=== PATIENT | female | born 1945 | race Caucasian/White ===

== ENCOUNTER 2016-11-03 16:25 | Inpatient (IN) | payer MEDICARE, BC ==
[2016-11-03 17:00] LABS: LEUKOCYTES/URINE NEG (NEGATIVE); NITRITE/URINE NEG (NEGATIVE); URINE OCCULT BLOOD NEG (NEG/TRACE)
[2016-11-03 17:01] LABS: RBC/URINE 0-2 (0-5); WBC/URINE 0-2 (0-5)
[2016-11-03 17:18] LABS: AUTOMATED BASOPHIL 0.3 % (0-2); AUTOMATED EOSINOPHIL 0.1 % (0-5); AUTOMATED LYMPH 12.5 % (17-44); AUTOMATED MONOCYTE 2.1 % (3-10); MPV 10.7 fL (7.4-10.4)
[2016-11-03 17:32] LABS: BLOOD UREA NITROGEN 31 MG/DL (7-17); CALCIUM 9.7 MG/DL (8.4-10.2); CHLORIDE 91 mEq/L (98-107); SODIUM LEVEL 133 mEq/L (137-146); TOTAL PROTEIN 6.6 G/DL (6.3-8.2)
[2016-11-03 17:40] LABS: CALCULATED OSMOLALITY 297 MOs/Kg (270-290)
[2016-11-03 17:41] LABS: GLUCOSE 705 MG/DL (70-99)
[2016-11-03] MEDS ORDERED: NS 1,000 ML IV ONE ×2 (17:47→17:51)
[2016-11-03] MEDS ORDERED: ONDANSETRON HCL 4 MG/2 ML VIAL IV ONE (17:51)
--- NOTE | 2016-11-03 18:09 | EDPRACDOC ---
- General Information Chief Complaint: Generalized Weakness Stated Complaint: DIABETIC VOMITING CBG READS HIGH Time Seen by Provider: 11/03/16 17:46 Information Source: Patient Home Medications: Home Medications Aspirin [Aspirin, Chewable] 81 mg PO DAILY 04/19/13 Ergocalciferol (Vitamin D2) [Vitamin D2 (ergocalciferol)] 50,000 units PO Vazquez@ 0900 04/19/13 Omeprazole [Prilosec] 40 mg PO DAILY 04/19/13 Sertraline HCl 100 mg PO DAILY 04/19/13 Atorvastatin Calcium [Lipitor] 20 mg PO QHS 11/11/15 BuPROPion (Daily formulation) [Wellbutrin Xl] 150 mg PO DAILY 11/11/15 Calcium Carbonate/Vitamin D3 [Calcium + Vit D Caplet (600mg/400IU)] 1 tab PO BID 11/11/15 Lisinopril [Prinivil] 10 mg PO DAILY 11/11/15 Iron Fum & Ps Cmp/Vit C & B [Integra Capsule] 1 each PO DAILY 11/03/16 Levothyroxine [Synthroid, Levoxyl] 50 mcg PO DAILY 11/03/16 Novolog Insulin Pump 0 units .ROUTE .CONTINUOUS 11/03/16 Allergies/Adverse Reactions: Allergies Allergy/AdvReac Type Severity Reaction Status Date / Time codeine Allergy Severe Anaphylaxis Verified 11/03/16 17:23 * potassium Allergy Hypotension Verified 11/03/16 17:23 - History of Present Illness Onset: 3 Exact Onset of Symptoms: Known Date Symptoms Started: 11/02/16 HPI: PATIENT PRESENTS C/O N/V COUGH FOR 2 DAYS . NO FEVER. BLOOD SUGAR UNCONTROLLED. Symptoms Started: Reports: Gradually Symptoms Description: Constant Weakness: Bilateral: Generalized Symptom Severity: Reports: Unable to performs ADL's Relevant History of: Reports: DM Associated signs and symptoms:: Reports: Nausea, Vomiting ED Past Medical History - History Reviewed Yes Nurses notes reviewed and agree except as marked Travel Outside of [place] in the Last 3 Months?: No - Patient Medical History GI/ History: Reports: Urinary Tract Infection Musculoskeletal History: Reports: Arthritis Psychological History: Reports: Depression Systemic History: Reports: Anemia, Diabetes, Hypothyroidism. Denies: Cancer Surgical History: Reports: Hysterectomy, Tonsillectomy/Adnoidectomy - Family Medical History Reports: Diabetes, Cancer, Cardiac Disorders - Social Medical History Smoking Status: Former smoker ETOH: None Substance Abuse: None Lives With: Family Lives In: Home EDM Review of Systems - Review of Systems ROS Negative Except as Marked: Yes All systems reviewed and were negative except as marked Constitutional: Fatigue. negative: Chills, Fever, Loss of Appetite, Weakness Eyes: No Symptoms Reported. negative: Redness, Blurred Vision, Double Vision, Discharge, Pain, Light Sensitive, Photophobia Ears: No Symptoms Reported. negative: Pain, Hearing Loss, Drainage, Ear Pulling Throat: No Symptoms Reported. negative: Pain, Swelling Nose: No Symptoms Reported. negative: Congestion, Bleeding, Discharge, Injection, Swelling, Deformity, Ecchymosis, Tender, Abrasion, Laceration Mouth: No Symptoms Reported. negative: Pain, Drooling Respiratory: Cough. negative: Barky Cough, Brassy Cough, Hemoptysis, Shortness of Breath, Wheezing Cardiovascular: No Symptoms Reported. negative: Chest Pain, Palpitations, Syncope, Edema, Orthopnea, PND, Skin Mottling, Cyanosis Gastrointestinal: Nausea, Vomiting. negative: Constipation, Diarrhea, Formula Intolerance, Melena, Pain Genitourinary: No Symptoms Reported. negative: Dysuria, Hematuria, Frequency, Discharge, Bleeding, Testicular Pain, Neurological: No Symptoms Reported. negative: Headache, Dizziness, Seizure, Numbness, Weakness, Speech Difficulty, Gait Difficulty Musculoskeletal: No Symptoms Reported. negative: Neck, Chestwall, Ribs, Back, Shoulder, Arm, Elbow, Forearm, Wrist, Hand, Pelvis, Hip, Femur, Knee, Leg, Ankle , Foot Integumentary: No Symptoms Reported. negative: Itching, Rash, Bruising, Wound Allergic/Immunologic: No Symptoms Reported. negative: Hives, Itching Hematologic: No Symptoms Reported. negative: Lymphadenopathy, Easy Bruising, Easy Bleeding Endocrine: No Symptoms Reported. negative: Weight Gain, Weight Loss Psychiatric: No Symptoms Reported. negative: Anxiety, Depression, Hallucinations, Insomnia, Suicidal - Physical Exam Constitutional: Alert (Awake) Oriented to: Time, Person, Place Last recorded Vital Signs: Last Vital Signs Temp 98.6 F 11/03/16 16:37 Pulse 118 11/03/16 18:03 Resp 16 11/03/16 18:03 BP 127/57 L 11/03/16 18:03 Pulse Ox 99 11/03/16 18:03 Oxygen Pulse Oxygen Saturation 99 O2 Device Room Air Oxygen Flow Rate Fraction of Inspired Oxygen ( FIO2) - HEENT Head: Normal ( normocephalic) Eye Exam: Normal (PERRL, EOMI, Sclera white) Oropharynx: Normal (Pharynx:Moist without exudate,Gums-no swelling) Tympanic Membrane: Normal ENT EAC: Normal TMJ: Normal Nose: No Symptoms Reported (septum midline) Neck: Normal (FROM, trachea at midline) - Respiratory/Cardiovascular Respiratory: Normal - CTA (BBS clear to auscultation without adventitious sounds ) Cardiovascular: Normal (RRR without murmur, gallop or rub) - GI Auscultation: Normal (NABS) Palpation: Normal (Soft,No rebound or guarding, non distended) Tenderness: Non tender Jean's Sign: Negative - Musculoskeletal Back: Normal (Non-Tender) Extremities: Normal (Normal tone, Pulses 2+ No cyanosis or edema, FROM) - Integumentary Skin: Normal, Warm, Dry Lymphatics: Normal (no adenopathy) - Neurologic Memory Impaired: Normal Motor Function: Normal (Normal tone, Pulses 2+ No cyanosis or edema, FROM) Cranial Nerve: Normal (CN II-X11 intact sensation, strength 5/5) Cerebellar: Normal Mood Description: Normal Perception: Normal - Results 11/03/16 17:10 11/03/16 17:10 WBC 10.9 xk/uL (3.8-10.8) H 11/03/16 17:10 RBC 4.50 xM/uL (4.20-5.40) 11/03/16 17:10 Hgb 14.0 g/dL (12.0-16.0) 11/03/16 17:10 Hct 43.3 % (36-47) 11/03/16 17:10 MCV 96 fL (81-99) 11/03/16 17:10 MCH 31.2 pg (27-32) 11/03/16 17:10 MCHC 32.3 g/dl (33-36) L 11/03/16 17:10 RDW 13.0 % (11.5-14.5) 11/03/16 17:10 Plt Count 223 xk/uL (130-400) 11/03/16 17:10 MPV 10.7 fL (7.4-10.4) H 11/03/16 17:10 Neut % (Auto) 85.0 % (45-76) H 11/03/16 17:10 Lymph % (Auto) 12.5 % (17-44) L 11/03/16 17:10 Ector % (Auto) 2.1 % (3-10) L 11/03/16 17:10 Eos % (Auto) 0.1 % (0-5) 11/03/16 17:10 Baso % (Auto) 0.3 % (0-2) 11/03/16 17:10 Absolute Neuts (auto) 9.27 xk/uL (1.7-8.2) H 11/03/16 17:10 Absolute Lymphs (auto) 1.31 xk/uL (0.65-4.75) 11/03/16 17:10 Sodium 133 mEq/L (137-146) L 11/03/16 17:10 Potassium 5.3 mEq/L (3.5-5.1) H 11/03/16 17:10 Chloride 91 mEq/L (98-107) L 11/03/16 17:10 Carbon Dioxide 11 mMOL/L (22-33) L 11/03/16 17:10 Anion Gap 36 mEq/L (8-16) H 11/03/16 17:10 BUN 31 MG/DL (7-17) H 11/03/16 17:10 Creatinine 1.20 MG/DL (0.52-1.04) H 11/03/16 17:10 Estimated GFR (MDRD) 44 mL/min (>=60) L 11/03/16 17:10 Glucose 705 MG/DL (70-99) H* 11/03/16 17:10 POC Capillary Glucose > 600 MG/DL (70-99) H* 11/03/16 17:07 Calculated Osmolality 297 MOs/Kg (270-290) H 11/03/16 17:10 Calcium 9.7 MG/DL (8.4-10.2) 11/03/16 17:10 Total Bilirubin 1.4 MG/DL (0.2-1.3) H 11/03/16 17:10 AST 25 IU/L (14-36) 11/03/16 17:10 ALT 29 IU/L (9-52) 11/03/16 17:10 Alkaline Phosphatase 142 IU/L (55-165) 11/03/16 17:10 Total Protein 6.6 G/DL (6.3-8.2) 11/03/16 17:10 Albumin 4.0 G/DL (3.5-5.0) 11/03/16 17:10 Urine Color Yellow 11/03/16 16:49 Urine Clarity Cldy 11/03/16 16:49 Urine pH 5.0 (5.0-8.0) 11/03/16 16:49 Ur Specific [place] 1.015 11/03/16 16:49 Urine Protein Neg (NEG/TRACE) 11/03/16 16:49 Urine Glucose (UA) 3+ (NEGATIVE) H 11/03/16 16:49 Urine Ketones 1+ (NEGATIVE) H 11/03/16 16:49 Urine Occult Blood Neg (NEG/TRACE) 11/03/16 16:49 Urine Nitrite Neg (NEGATIVE) 11/03/16 16:49 Urine Bilirubin Neg (NEGATIVE) 11/03/16 16:49 Urine Urobilinogen 0.2 MG/DL (0-1) 11/03/16 16:49 Ur Leukocyte Esterase Neg (NEGATIVE) 11/03/16 16:49 Urine RBC 0-2 (0-5) 11/03/16 16:49 Urine WBC 0-2 (0-5) 11/03/16 16:49 Ur Epithelial Cells 1+ 11/03/16 16:49 Urine Bacteria Few (NEG/FEW) 11/03/16 16:49 Lab Results 11/03/16 11/03/16 11/03/16 17:10 17:10 17:07 WBC 10.9 H RBC 4.50 Hgb 14.0 Hct 43.3 MCV 96 MCH 31.2 MCHC 32.3 L RDW 13.0 Plt Count 223 MPV 10.7 H Neut % (Auto) 85.0 H Lymph % (Auto) 12.5 L [place] % (Auto) 2.1 L Eos % (Auto) 0.1 Baso % (Auto) 0.3 Absolute Neuts (auto) 9.27 H Absolute Lymphs (auto) 1.31 Sodium 133 L Potassium 5.3 H Chloride 91 L Carbon Dioxide 11 L Anion Gap 36 H BUN 31 H Creatinine 1.20 H Estimated GFR (MDRD) 44 L Glucose 705 H* POC Capillary Glucose > 600 H* Calculated Osmolality 297 H Calcium 9.7 Total Bilirubin 1.4 H AST 25 ALT 29 Alkaline Phosphatase 142 Total Protein 6.6 Albumin 4.0 Urine Color Urine Clarity Urine pH Ur Specific [place] Urine Protein Urine Glucose (UA) Urine Ketones Urine Occult Blood Urine Nitrite Urine Bilirubin Urine Urobilinogen Ur Leukocyte Esterase Urine RBC Urine WBC Ur Epithelial Cells Urine Bacteria 11/03/16 11/03/16 16:49 16:35 WBC RBC Hgb Hct MCV MCH MCHC RDW Plt Count MPV Neut % (Auto) Lymph % (Auto) [place] % (Auto) Eos % (Auto) Baso % (Auto) Absolute Neuts (auto) Absolute Lymphs (auto) Sodium Potassium Chloride Carbon Dioxide Anion Gap BUN Creatinine Estimated GFR (MDRD) Glucose POC Capillary Glucose > 600 H* Calculated Osmolality Calcium Total Bilirubin AST ALT Alkaline Phosphatase Total Protein Albumin Urine Color Yellow Urine Clarity Cldy Urine pH 5.0 Ur Specific [place] 1.015 Urine Protein Neg Urine Glucose (UA) 3+ H Urine Ketones 1+ H Urine Occult Blood Neg Urine Nitrite Neg Urine Bilirubin Neg Urine Urobilinogen 0.2 Ur Leukocyte Esterase Neg Urine RBC 0-2 Urine WBC 0-2 Ur Epithelial Cells 1+ Urine Bacteria Few - EKG EKG #1 EKG Time: 18:01 -: Yes EKG interpreted by me Rate: bpm: 118 Priddy: Normal Rhythm: ST Block: None Hypertrophy: None ST: Normal - Departure Yes I personally saw and evaluated the patient. Disposition: Home Condition: Good Final Diagnosis: DKA (diabetic ketoacidoses) Qualifiers: Diabetes mellitus type: type 1 Diabetes mellitus complication detail: without coma Qualified Code(s): E10.10 - Type 1 diabetes mellitus with ketoacidosis without coma Nausea & vomiting Qualifiers: Vomiting type: unspecified Vomiting Intractability: non-intractable Qualified Code(s): R11.2 - Nausea with vomiting, unspecified Instructions: Managing Diabetes During Sick Days (ED), Acute Nausea and Vomiting (ED), Diabetes and Exercise, Weakness (General) Education/Counseling Given To: Patient Education/Counseling Given Regarding: Diagnosis, Treatment, Prognosis Referrals: None,No Provider [Primary Care Provider] - One Week Forms: Patient Discharge Instructions, ED Discharge Instructions Decision to Admit Time: 18:18 Decision to admit date: 11/03/16 Decision to admit: from ED - Physician Consulted Hospitalist Time Called: 18:18 Provider Called: Jerry Valle Time Labor Conciliator Returned Call: 18:18
[2016-11-03] MEDS: Insulin, Regular 100 UNITS in NS 99 ML IV SCH ×2 (18:11)
--- NOTE | 2016-11-03 18:15 | DIRPT ---
CLINICAL DATA: Shortness of breath. EXAM: PORTABLE CHEST 1 VIEW COMPARISON: None. FINDINGS: The cardiac silhouette is normal. Mediastinal contours appear intact. There is no evidence of focal airspace consolidation, pleural effusion or pneumothorax. Osseous structures are without acute abnormality. Soft tissues are grossly normal. IMPRESSION: No active disease. Electronically Signed By: Shaq Karimi M.D. On: 11/03/2016 18:12
[2016-11-03 18:19] LABS: ABG Draw Site rr; ALLEN'S TEST PASS; TCO2 11.6 MMOL/L (23-27)
[2016-11-03] MEDS ORDERED: DEXTROSE 25 GM/50 ML PFS IV PRN (19:54)
[2016-11-03] MEDS ORDERED: BENZONATATE 100 MG PERLES PO PRN (19:54)
[2016-11-03] MEDS ORDERED: TEMAZEPAM 15 MG CAP PO PRN (19:54)
[2016-11-03] MEDS ORDERED: SENNA CONCENTRATE TAB PO PRN (19:54)
[2016-11-03] MEDS ORDERED: BISACODYL 5 MG TAB PO PRN (19:54)
[2016-11-03] MEDS ORDERED: ACETAMINOPHEN 325 MG SUPP PR PRN (19:54)
[2016-11-03] MEDS ORDERED: Aluminum;Magnesium;Simethicone 30 ML UDC PO PRN (19:54)
[2016-11-03] MEDS ORDERED: GUAIFEN 100 MG-DEXTROMETH 10 MG PER 5 ML PO PRN (19:54)
[2016-11-03] MEDS ORDERED: ACETAMINOPHEN 325 MG/TAB TABLET PO PRN (19:54)
--- NOTE | 2016-11-03 19:59 | HISTPHYS ---
- Chief Complaint weakness - History of Present Illness PRIMARY CARE PROVIDER: Aminata Garza NP, under Dr. Moon in [place] PUBLIC HEALTH ASSISTANT: Dr. Eric Gomez in [place] HPI: The patient is a 71 yo woman with type 1 diabetes who presents with weakness and vomiting. Did not start vomiting until today. Started feeling sick yesterday. No interruption in insulin except the day before yesterday, when she also felt sick. She has taken more insulin today but it did not help. Onset: Yesterday. Duration: intermittent. Location: generalized Radiation: none Character: severe fatigue and weakness. Alleviated by: Nothing. Exacerbated by: Nothing. Associated Symptoms: Coughing. Nausea and vomiting. Fell last week and hurt right back but getting better. Treatments: none at home except usual medications. FSBS are variable. Sometimes can get to greater than 500. High the last few days. Some were 600. - Medical History GI/ History: Reports: Urinary Tract Infection Musculoskeletal History: Reports: Arthritis Systemic History: Reports: Anemia, Diabetes (TYPE 1, ON INSULIN PUMP), Hypothyroidism. Denies: Cancer Psychological History: Reports: Depression - Surgical History Reports: Hysterectomy, Tonsillectomy/Adnoidectomy - Medictions/Allergies Allergies codeine Allergy (Severe, Verified 11/03/16 17:23) Anaphylaxis* potassium Allergy (Verified 11/03/16 17:23) Hypotension pt states she can take oral potassium just not IV potassium Current Medication List: Reviewed Home Medications Aspirin [Aspirin, Chewable] 81 mg PO DAILY 04/19/13 Ergocalciferol (Vitamin D2) [Vitamin D2 (ergocalciferol)] 50,000 units PO Vazquez@ 0900 04/19/13 Omeprazole [Prilosec] 40 mg PO DAILY 04/19/13 Sertraline HCl 100 mg PO DAILY 04/19/13 Atorvastatin Calcium [Lipitor] 20 mg PO QHS 11/11/15 BuPROPion (Daily formulation) [Wellbutrin Xl] 150 mg PO DAILY 11/11/15 Calcium Carbonate/Vitamin D3 [Calcium + Vit D Caplet (600mg/400IU)] 1 tab PO BID 11/11/15 Lisinopril [Prinivil] 10 mg PO DAILY 11/11/15 Iron Fum & Ps Cmp/Vit C & B [Integra Capsule] 1 each PO DAILY 11/03/16 Levothyroxine [Synthroid, Levoxyl] 50 mcg PO DAILY 11/03/16 Novolog Insulin Pump 0 units .ROUTE .CONTINUOUS 11/03/16 - Family History Reports: Diabetes, Cancer, Cardiac Disorders - Social History Smoking Status: Former smoker Social History: Denies: Alcohol Use, Substance Use Disorder - Review of Systems GENERAL: No Fever, chills, or diaphoresis. Positive for fatigue/malaise. HEENT: No ear pain or discharge. No nasal discharge or bleeding. No throat pain or swelling. No eye pain or eye redness. RESPIRATORY: Coughing. No wheezing, or shortness of breath. CARDIOVASCULAR: No chest pain or palpitations. GI: Nausea and vomiting. No abdominal pain, diarrhea, constipation, or bloody stool. NEUROLOGICAL: No headache or focal weakness. INTEGUMENT: no rashes, itching, or lesions. LYMPHATIC SYSTEM: no lymph node swelling or pain. MUSCULOSKELETAL: no pain or joint swelling. GENITOURINARY: No dysuria or hematuria. ENDOCRINE: Polyuria and polydipsia. HEME: No chronic anemia, bleeding, or easy bruising. - Physical Exam Vital Signs: Initial Vitals Temperature 98.6 F 11/03/16 16:37 Pulse Rate 112 11/03/16 16:37 Respiratory Rate 16 11/03/16 16:37 Blood Pressure 110/52 L 11/03/16 16:37 Pulse Oxygen Saturation 96 11/03/16 16:37 Vital Signs - 24 hr 11/03/16 11/03/16 11/03/16 16:37 17:09 18:03 Temperature 98.6 F Pulse Rate 112 119 118 Respiratory 16 18 16 Rate Blood Pressure 110/52 L 156/55 L 127/57 L Pulse Oxygen 96 94 99 Saturation 11/03/16 11/03/16 11/03/16 18:22 19:02 19:35 Temperature Pulse Rate 118 123 H 122 H Respiratory 18 18 20 Rate Blood Pressure 112/53 L 109/59 L 117/64 Pulse Oxygen 96 93 96 Saturation 11/03/16 19:40 Temperature Pulse Rate 122 H Respiratory 20 Rate Blood Pressure 117/64 Pulse Oxygen 96 Saturation Weight: 62.1 kg Height: 5 feet 2 inches BMI: 25.1 - Other Exam Other Exam Findings: GENERAL: Ill-appearing, well nourished, in acute distress. HEENT: Normocephalic, atraumatic; pupils equal and round. Nares patent, without discharge or bleeding. No oropharyngeal lesions or erythema. Mucous membranes are dry.Has fruity/acetone odor of breath. NECK: is supple, no masses, trachea midline. RESPIRATORY: Clear to auscultation bilaterally. Chest wall movements are symmetric. No use of accessory muscles to breathe. No wheezing, rales, rhonchi. CARDIOVASCULAR: Normal S1, S2. No murmurs, rubs, or gallops. PMI non-displaced. Carotids: no carotid bruits. Tachycardia. DP pulses 1+ bilaterally. GI: soft, nontender, non-distended, normal active bowel sounds. No hepatosplenomegaly. INTEGUMENT: Clean, dry, and intact. No rashes. Healing scar on right knee. MUSCULOSKELETAL: Moving all extremities. No cyanosis. No clubbing. Edema: none bilaterally. Mild tenderness over lateral right ribs and right mid back. NEUROLOGICAL: Cranial nerves 2-12 grossly intact. Motor 5/5 throughout. Reflexes : 2+ bilaterally. Babinski: toes downgoing bilaterally. Intact Finger to nose. Sensory grossly intact to light touch. Intact rapid alternating movements bilaterally. No pronator drift. PSYCHIATRIC: Fully oriented. Normal and appropriate affect. LYMPHATIC: No cervical lymphadenopathy. No supraclavicular lymphadenopathy. - Lab Results Laboratory Results - last 24 hr 11/03/16 11/03/16 11/03/16 16:35 16:49 17:07 WBC RBC Hgb Hct MCV MCH MCHC RDW Plt Count MPV Neut % (Auto) Lymph % (Auto) [place] % (Auto) Eos % (Auto) Baso % (Auto) Absolute Neuts (auto) Absolute Lymphs (auto) Puncture Site pH pCO2 pO2 HCO3 Total CO2 Base Excess FiO2 % Specimen Drawn By Sodium Potassium Chloride Carbon Dioxide Anion Gap BUN Creatinine Estimated GFR (MDRD) Glucose POC Capillary Glucose > 600 H* > 600 H* Calculated Osmolality Calcium Total Bilirubin AST ALT Alkaline Phosphatase Total Protein Albumin Urine Color Yellow Urine Clarity Cldy Urine pH 5.0 Ur Specific [place] 1.015 Urine Protein Neg Urine Glucose (UA) 3+ H Urine Ketones 1+ H Urine Occult Blood Neg Urine Nitrite Neg Urine Bilirubin Neg Urine Urobilinogen 0.2 Ur Leukocyte Esterase Neg Urine RBC 0-2 Urine WBC 0-2 Ur Epithelial Cells 1+ Urine Bacteria Few 11/03/16 11/03/16 11/03/16 17:10 17:10 18:02 WBC 10.9 H RBC 4.50 Hgb 14.0 Hct 43.3 MCV 96 MCH 31.2 MCHC 32.3 L RDW 13.0 Plt Count 223 MPV 10.7 H Neut % (Auto) 85.0 H Lymph % (Auto) 12.5 L Bell % (Auto) 2.1 L Eos % (Auto) 0.1 Baso % (Auto) 0.3 Absolute Neuts (auto) 9.27 H Absolute Lymphs (auto) 1.31 Puncture Site pH pCO2 pO2 HCO3 Total CO2 Base Excess FiO2 % Specimen Drawn By Sodium 133 L Potassium 5.3 H Chloride 91 L Carbon Dioxide 11 L Anion Gap 36 H BUN 31 H Creatinine 1.20 H Estimated GFR (MDRD) 44 L Glucose 705 H* POC Capillary Glucose > 600 H* Calculated Osmolality 297 H Calcium 9.7 Total Bilirubin 1.4 H AST 25 ALT 29 Alkaline Phosphatase 142 Total Protein 6.6 Albumin 4.0 Urine Color Urine Clarity Urine pH Ur Specific [place] Urine Protein Urine Glucose (UA) Urine Ketones Urine Occult Blood Urine Nitrite Urine Bilirubin Urine Urobilinogen Ur Leukocyte Esterase Urine RBC Urine WBC Ur Epithelial Cells Urine Bacteria 11/03/16 11/03/16 18:14 19:03 WBC RBC Hgb Hct MCV MCH MCHC RDW Plt Count MPV Neut % (Auto) Lymph % (Auto) Bell % (Auto) Eos % (Auto) Baso % (Auto) Absolute Neuts (auto) Absolute Lymphs (auto) Puncture Site rr pH 7.190 L* pCO2 28.0 L pO2 72.0 L HCO3 10.7 L Total CO2 11.6 L Base Excess -16.0 L FiO2 % 21% Specimen Drawn By si Sodium Potassium Chloride Carbon Dioxide Anion Gap BUN Creatinine Estimated GFR (MDRD) Glucose POC Capillary Glucose 499 H* Calculated Osmolality Calcium Total Bilirubin AST ALT Alkaline Phosphatase Total Protein Albumin Urine Color Urine Clarity Urine pH Ur Specific [place] Urine Protein Urine Glucose (UA) Urine Ketones Urine Occult Blood Urine Nitrite Urine Bilirubin Urine Urobilinogen Ur Leukocyte Esterase Urine RBC Urine WBC Ur Epithelial Cells Urine Bacteria - Diagnostic Findings DIAGNOSTIC DATA: EK bpm. Sinus tachycardia. Reviewed EKG personally. IMAGING: Chest x-ray, viewed personally: EXAM: PORTABLE CHEST 1 VIEW COMPARISON: None. FINDINGS: The cardiac silhouette is normal. Mediastinal contours appear intact. There is no evidence of focal airspace consolidation, pleural effusion or pneumothorax. Osseous structures are without acute abnormality. Soft tissues are grossly normal. IMPRESSION: No active disease. - Assessment (1) DKA, type 1 E10.10 - TYPE 1 DIABETES MELLITUS WITH KETOACIDOSIS WITHOUT COMA Acute Present on Admission: Yes Qualifiers: Diabetes mellitus complication detail: without coma Qualified Code(s): E10.10 - Type 1 diabetes mellitus with ketoacidosis without coma Severe. Patient is critically ill and in DKA. Has an elevated anion gap and acidosis on blood gas. Plan: Admit to ICU. Order DKA protocol. Insulin IV gtt. Measure basic metabolic panel and other labs per schedule. Replace potassium per protocol. (2) Tachycardia R00.0 - TACHYCARDIA, UNSPECIFIED Acute Present on Admission: Yes Likely due to DKA but will need to monitor. Plan: Telemetry. IVF. (3) Dehydration E86.0 - DEHYDRATION Active Present on Admission: Yes Plan: IV fluids. (4) Acute renal insufficiency N28.9 - DISORDER OF KIDNEY AND URETER, UNSPECIFIED Acute Present on Admission: Yes Likely due to dehydration and acute DKA. Plan: Trial of IV fluids. (5) Nausea & vomiting R11.2 - NAUSEA WITH VOMITING, UNSPECIFIED Acute Present on Admission: Yes Qualifiers: Vomiting type: unspecified Vomiting Intractability: non-intractable Qualified Code(s): R11.2 - Nausea with vomiting, unspecified P.r.n. Zofran and Phenergan. - Plan In summary, this patient is acutely and critically ill. The patient requires treatment of vital organ failure and measures to prevent further life- threatening deterioration of condition. I have spent 45 min in the critical care of this patient. Case Care Discussed with: Patient, Nursing Staff Total Time: 45 min Critical Care: Yes Code: 291
[2016-11-03] MEDS ORDERED: REGULAR INSULIN 100 UNITS/ML - 3 ML VIAL SQ SCH (20:00)
[2016-11-03] MEDS ORDERED: DKA ELECTROLYTE PROTOCOL SCH (20:00)
[2016-11-03] MEDS ORDERED: D5-1/2NS/KCL 20 mEq 1,000 ML IV SCH (20:00)
[2016-11-03] MEDS ORDERED: NS 1,000 ML IV SCH ×2 (20:00→21:00)
[2016-11-03] MEDS ORDERED: NS/KCl 20 mEq 1,000 ML IV SCH (20:00)
[2016-11-03 20:50] LABS: BLOOD UREA NITROGEN 29 MG/DL (7-17); CALCIUM 8.9 MG/DL (8.4-10.2); CALCULATED OSMOLALITY 293 MOs/Kg (270-290); CHLORIDE 102 mEq/L (98-107); GLUCOSE 381 MG/DL (70-99); SODIUM LEVEL 141 mEq/L (137-146)
[2016-11-03] MEDS ORDERED: Non-Formulary Medication ITEM (Calcium Carbonate/Vitamin D3 [Calcium + Vit D Caplet (600 PO SCH (21:00)
[2016-11-03] MEDS: ENOXAPARIN 40 MG/0.4 ML PFS SQ SCH (21:15)
[2016-11-03] MEDS: ATORVASTATIN 20 MG TAB PO SCH (21:15)
[2016-11-03] MEDS: CHLORHEXIDINE (HIBICLENS) 4 OZ BOTTLE TOP SCH (21:16)
[2016-11-03] MEDS ORDERED: Vaccine Screening Complete SCH (22:00)
[2016-11-04 01:16] LABS: BLOOD UREA NITROGEN 31 MG/DL (7-17); CALCIUM 8.8 MG/DL (8.4-10.2); CALCULATED OSMOLALITY 279 MOs/Kg (270-290); CHLORIDE 106 mEq/L (98-107); GLUCOSE 169 MG/DL (70-99); SODIUM LEVEL 139 mEq/L (137-146)
[2016-11-04] MEDS: D5-1/2NS/KCL 20 mEq 1,000 ML IV SCH ×2 (02:16→16:30)
[2016-11-04] MEDS ORDERED: Magnesium Sulfate 2 gm/D5W 2 GM/50 ML RTU IV ONE (04:00)
[2016-11-04] MEDS ORDERED: KCl 10 mEq/100 ml Premix (Run) 10 MEQ/100 ML RTU IV ONE (04:00)
[2016-11-04] MEDS: Insulin, Regular 100 UNITS in NS 99 ML IV SCH ×6 (04:00→16:31)
[2016-11-04] MEDS: PANTOPRAZOLE 40 MG TAB PO SCH (06:40)
[2016-11-04] MEDS: LISINOPRIL 10 MG TAB PO SCH (08:14)
[2016-11-04] MEDS ORDERED: PS CMP PO SCH (09:00)
[2016-11-04] MEDS ORDERED: ERGOCALCIFEROL (VITAMIN D2) 50000 UNITS CAP PO SCH (09:00)
[2016-11-04] MEDS ORDERED: [UNRECOGNIZED DRUG - OTHER] PO SCH (09:00)
[2016-11-04] MEDS ORDERED: Non-Formulary Medication ITEM (Omeprazole 40 MG) PO SCH (09:00)
[2016-11-04] MEDS ORDERED: VIT C PO SCH (09:00)
[2016-11-04] MEDS ORDERED: IRON FUM PO SCH (09:00)
[2016-11-04] MEDS: LEVOTHYROXINE 50 MCG (0.05 MG) TAB PO SCH (09:27)
[2016-11-04] MEDS: CALCIUM CARBONATE + VITAMIN D 500 MG TAB PO SCH ×2 (09:28→16:40)
[2016-11-04] MEDS: SERTRALINE HCL 100 MG TAB PO SCH (09:28)
[2016-11-04] MEDS: VITS,MINERALS,IRON TAB PO SCH (09:28)
[2016-11-04] MEDS: ASPIRIN (CHEWABLE) 81 MG TAB PO SCH (09:28)
[2016-11-04 09:40] LABS: MPV 9.7 fL (7.4-10.4)
[2016-11-04] MEDS: BuPROPion 150 MG XL TAB PO SCH (09:44)
[2016-11-04 09:57] LABS: BLOOD UREA NITROGEN 29 MG/DL (7-17); CALCIUM 8.7 MG/DL (8.4-10.2); CALCULATED OSMOLALITY 275 MOs/Kg (270-290); CHLORIDE 106 mEq/L (98-107); GLUCOSE 96 MG/DL (70-99); SODIUM LEVEL 140 mEq/L (137-146)
--- NOTE | 2016-11-04 10:18 | GENMEDPROG ---
Chief Complaint: No more nausea vomiting denies any cough fever chills no burning on urination. Notes Reviewed: Yes Events from last night noted and discussed with Clinical Staff Current Medication List: Reviewed DVT Prophylaxis: Yes - Physical Examination Vital Signs and I&O: Last Vital Signs Temp 98.4 F 11/04/16 07:00 Pulse 96 11/04/16 08:00 Resp 18 11/04/16 06:00 BP 94/54 L 11/04/16 08:00 Pulse Ox 90 L 11/04/16 08:00 Oxygen Pulse Oxygen Saturation 90 O2 Device Room Air Oxygen Flow Rate 2 Fraction of Inspired Oxygen ( FIO2) Intake & Output 11/01/16 11/02/16 11/03/16 11/04/16 23:59 23:59 23:59 23:59 Intake Total 2012 969 Balance 2012 969 Patient's weight 63.276 kg 63.276 kg General: Alert, Oriented x3, No acute distress, Well appearing, Well nourished HEENT: Normal (Normocephalic, atraumatic;EOMI.Sclera white, Nares patent, without discharge or bleeding. No oropharyngeal lesions or erythema. Mucous membranes are dry.) Neck: Non-tender, Normal Trachea alignment, Normal inspection (No cervical lymphadenopathy. No supraclavicular lymphadenopathy.), No Masses palpable, Limited range of motion, Supple Lymphatics: Normal (no adenopathy) Respiratory: Normal - CTA (BBS clear to auscultation without adventitious sounds ) Cardiovascular: Regular rate and rhythm (No bradycardia or tachycardia), Normal S1, No Gallops,Rubs/Murmurs, Normal S2, Good Pedal Pulses (DP pulses 2+ bilaterally) GI: Normal bowel sounds (normal active sounds), Soft (non-distended), Non tender , No hepatospenomegaly, No masses Extremities/Musculoskeletal: Normal pulses (DP pulses 2+ bilaterally) Skin: Warm,Dry and Intact, No rashes, No significant lesion Neurological: Strength at 5/5 X4 ext (Motor 5/5 throughout.), Normal tone, Cranial nerves 3-12 NL ( 2-12 grossly intact.) Psych/Mental Status: Appropriate, Normal Affect Lab/DI/Studies Reviewed: 11/04/16 09:10 11/04/16 09:10 Laboratory Results - last 24 hr 11/03/16 11/03/1617 16:35 16:49 17:07 WBC RBC Hgb Hct MCV MCH MCHC RDW Plt Count MPV Neut % (Auto) Lymph % (Auto) [place] % (Auto) Eos % (Auto) Baso % (Auto) Absolute Neuts (auto) Absolute Lymphs (auto) Puncture Site pH pCO2 pO2 HCO3 Total CO2 Base Excess FiO2 % Specimen Drawn By Sodium Potassium Chloride Carbon Dioxide Anion Gap BUN Creatinine Estimated GFR (MDRD) Glucose POC Capillary Glucose > 600 H* > 600 H* Calculated Osmolality Calcium Phosphorus Magnesium Total Bilirubin AST ALT Alkaline Phosphatase Total Protein Albumin Urine Color Yellow Urine Clarity Cldy Urine pH 5.0 Ur Specific [place] 1.015 Urine Protein Neg Urine Glucose (UA) 3+ H Urine Ketones 1+ H Urine Occult Blood Neg Urine Nitrite Neg Urine Bilirubin Neg Urine Urobilinogen 0.2 Ur Leukocyte Esterase Neg Urine RBC 0-2 Urine WBC 0-2 Ur Epithelial Cells 1+ Urine Bacteria Few 11/03/16 11/03/16 11/03/16 17:10 17:10 18:02 WBC 10.9 H RBC 4.50 Hgb 14.0 Hct 43.3 MCV 96 MCH 31.2 MCHC 32.3 L RDW 13.0 Plt Count 223 MPV 10.7 H Neut % (Auto) 85.0 H Lymph % (Auto) 12.5 L [place] % (Auto) 2.1 L Eos % (Auto) 0.1 Baso % (Auto) 0.3 Absolute Neuts (auto) 9.27 H Absolute Lymphs (auto) 1.31 Puncture Site pH pCO2 pO2 HCO3 Total CO2 Base Excess FiO2 % Specimen Drawn By Sodium 133 L Potassium 5.3 H Chloride 91 L Carbon Dioxide 11 L Anion Gap 36 H BUN 31 H Creatinine 1.20 H Estimated GFR (MDRD) 44 L Glucose 705 H* POC Capillary Glucose > 600 H* Calculated Osmolality 297 H Calcium 9.7 Phosphorus Magnesium Total Bilirubin 1.4 H AST 25 ALT 29 Alkaline Phosphatase 142 Total Protein 6.6 Albumin 4.0 Urine Color Urine Clarity Urine pH Ur Specific [place] Urine Protein Urine Glucose (UA) Urine Ketones Urine Occult Blood Urine Nitrite Urine Bilirubin Urine Urobilinogen Ur Leukocyte Esterase Urine RBC Urine WBC Ur Epithelial Cells Urine Bacteria 11/03/16 11/03/16 11/03/16 18:14 19:03 20:15 WBC RBC Hgb Hct MCV MCH MCHC RDW Plt Count MPV Neut % (Auto) Lymph % (Auto) [place] % (Auto) Eos % (Auto) Baso % (Auto) Absolute Neuts (auto) Absolute Lymphs (auto) Puncture Site rr pH 7.190 L* pCO2 28.0 L pO2 72.0 L HCO3 10.7 L Total CO2 11.6 L Base Excess -16.0 L FiO2 % 21% Specimen Drawn By si Sodium 141 D Potassium 3.8 D Chloride 102 Carbon Dioxide 12 L Anion Gap 31 H BUN 29 H Creatinine 1.00 Estimated GFR (MDRD) 55 L Glucose 381 H POC Capillary Glucose 499 H* Calculated Osmolality 293 H Calcium 8.9 Phosphorus Magnesium 1.80 Total Bilirubin AST ALT Alkaline Phosphatase Total Protein Albumin Urine Color Urine Clarity Urine pH Ur Specific [place] Urine Protein Urine Glucose (UA) Urine Ketones Urine Occult Blood Urine Nitrite Urine Bilirubin Urine Urobilinogen Ur Leukocyte Esterase Urine RBC Urine WBC Ur Epithelial Cells Urine Bacteria 11/03/16 11/03/16 11/03/16 20:17 20:59 21:52 WBC RBC Hgb Hct MCV MCH MCHC RDW Plt Count MPV Neut % (Auto) Lymph % (Auto) [place] % (Auto) Eos % (Auto) Baso % (Auto) Absolute Neuts (auto) Absolute Lymphs (auto) Puncture Site pH pCO2 pO2 HCO3 Total CO2 Base Excess FiO2 % Specimen Drawn By Sodium Potassium Chloride Carbon Dioxide Anion Gap BUN Creatinine Estimated GFR (MDRD) Glucose POC Capillary Glucose 442 H* 401 H* 278 H Calculated Osmolality Calcium Phosphorus Magnesium Total Bilirubin AST ALT Alkaline Phosphatase Total Protein Albumin Urine Color Urine Clarity Urine pH Ur Specific [place] Urine Protein Urine Glucose (UA) Urine Ketones Urine Occult Blood Urine Nitrite Urine Bilirubin Urine Urobilinogen Ur Leukocyte Esterase Urine RBC Urine WBC Ur Epithelial Cells Urine Bacteria 11/03/16 11/04/16 11/04/16 22:49 00:02 00:50 WBC RBC Hgb Hct MCV MCH MCHC RDW Plt Count MPV Neut % (Auto) Lymph % (Auto) [place] % (Auto) Eos % (Auto) Baso % (Auto) Absolute Neuts (auto) Absolute Lymphs (auto) Puncture Site pH pCO2 pO2 HCO3 Total CO2 Base Excess FiO2 % Specimen Drawn By Sodium 139 Potassium 3.9 Chloride 106 Carbon Dioxide 23 Anion Gap 14 BUN 31 H Creatinine 0.80 Estimated GFR (MDRD) > 60 Glucose 169 H POC Capillary Glucose 214 H 177 H Calculated Osmolality 279 Calcium 8.8 Phosphorus Magnesium Total Bilirubin AST ALT Alkaline Phosphatase Total Protein Albumin Urine Color Urine Clarity Urine pH Ur Specific [place] Urine Protein Urine Glucose (UA) Urine Ketones Urine Occult Blood Urine Nitrite Urine Bilirubin Urine Urobilinogen Ur Leukocyte Esterase Urine RBC Urine WBC Ur Epithelial Cells Urine Bacteria 11/04/16 11/04/16 11/04/16 00:50 02:04 03:12 WBC RBC Hgb Hct MCV MCH MCHC RDW Plt Count MPV Neut % (Auto) Lymph % (Auto) [place] % (Auto) Eos % (Auto) Baso % (Auto) Absolute Neuts (auto) Absolute Lymphs (auto) Puncture Site pH pCO2 pO2 HCO3 Total CO2 Base Excess FiO2 % Specimen Drawn By Sodium Potassium Chloride Carbon Dioxide Anion Gap BUN Creatinine Estimated GFR (MDRD) Glucose POC Capillary Glucose 187 H 133 H 111 H Calculated Osmolality Calcium Phosphorus Magnesium Total Bilirubin AST ALT Alkaline Phosphatase Total Protein Albumin Urine Color Urine Clarity Urine pH Ur Specific [place] Urine Protein Urine Glucose (UA) Urine Ketones Urine Occult Blood Urine Nitrite Urine Bilirubin Urine Urobilinogen Ur Leukocyte Esterase Urine RBC Urine WBC Ur Epithelial Cells Urine Bacteria 11/04/16 11/04/16 11/04/16 04:00 05:47 08:14 WBC RBC Hgb Hct MCV MCH MCHC RDW Plt Count MPV Neut % (Auto) Lymph % (Auto) [place] % (Auto) Eos % (Auto) Baso % (Auto) Absolute Neuts (auto) Absolute Lymphs (auto) Puncture Site pH pCO2 pO2 HCO3 Total CO2 Base Excess FiO2 % Specimen Drawn By Sodium Potassium Chloride Carbon Dioxide Anion Gap BUN Creatinine Estimated GFR (MDRD) Glucose POC Capillary Glucose 112 H 98 87 Calculated Osmolality Calcium Phosphorus Magnesium Total Bilirubin AST ALT Alkaline Phosphatase Total Protein Albumin Urine Color Urine Clarity Urine pH Ur Specific [place] Urine Protein Urine Glucose (UA) Urine Ketones Urine Occult Blood Urine Nitrite Urine Bilirubin Urine Urobilinogen Ur Leukocyte Esterase Urine RBC Urine WBC Ur Epithelial Cells Urine Bacteria 11/04/16 11/04/16 11/04/16 09:10 09:10 09:10 WBC 14.1 H RBC 4.05 L Hgb 12.6 Hct 37.3 MCV 92 MCH 31.0 MCHC 33.7 RDW 12.8 Plt Count 207 MPV 9.7 Neut % (Auto) Lymph % (Auto) [place] % (Auto) Eos % (Auto) Baso % (Auto) Absolute Neuts (auto) Absolute Lymphs (auto) Puncture Site pH pCO2 pO2 HCO3 Total CO2 Base Excess FiO2 % Specimen Drawn By Sodium 140 Potassium 3.9 Chloride 106 Carbon Dioxide 26 Anion Gap 12 BUN 29 H Creatinine 0.70 Estimated GFR (MDRD) > 60 Glucose 96 POC Capillary Glucose Calculated Osmolality 275 Calcium 8.7 Phosphorus 2.8 Cancelled Magnesium 2.60 H Total Bilirubin AST ALT Alkaline Phosphatase Total Protein Albumin Urine Color Urine Clarity Urine pH Ur Specific [place] Urine Protein Urine Glucose (UA) Urine Ketones Urine Occult Blood Urine Nitrite Urine Bilirubin Urine Urobilinogen Ur Leukocyte Esterase Urine RBC Urine WBC Ur Epithelial Cells Urine Bacteria - Assessment (1) DKA (diabetic ketoacidoses) Acute E13.10 - OTH DIABETES MELLITUS WITH KETOACIDOSIS WITHOUT COMA Qualifiers: Diabetes mellitus type: type 1 Diabetes mellitus complication detail: without coma Qualified Code(s): E10.10 - Type 1 diabetes mellitus with ketoacidosis without coma Comment/Plan: IV insulin ordered to control glucoses. (2) Chronic kidney disease stage 2 Chronic N18.2 - CHRONIC KIDNEY DISEASE, STAGE 2 (MILD) Comment/Plan: Creatinine dropped from 1.2-0.7. (3) Dehydration Active E86.0 - DEHYDRATION Comment/Plan: IV fluids. (4) Gastroesophageal reflux disease Active K21.9 - GASTRO-ESOPHAGEAL REFLUX DISEASE WITHOUT ESOPHAGITIS Comment/ Plan: PPI.
[2016-11-04 12:29] LABS: BLOOD UREA NITROGEN 27 MG/DL (7-17); CALCIUM 8.1 MG/DL (8.4-10.2); CALCULATED OSMOLALITY 272 MOs/Kg (270-290); CHLORIDE 105 mEq/L (98-107); GLUCOSE 196 MG/DL (70-99); SODIUM LEVEL 136 mEq/L (137-146)
[2016-11-04 16:19] LABS: BLOOD UREA NITROGEN 27 MG/DL (7-17); CALCIUM 8.5 MG/DL (8.4-10.2); CALCULATED OSMOLALITY 275 MOs/Kg (270-290); CHLORIDE 104 mEq/L (98-107); GLUCOSE 202 MG/DL (70-99); SODIUM LEVEL 137 mEq/L (137-146)
[2016-11-04] MEDS ORDERED: NS 1,000 ML IV SCH (16:25)
[2016-11-04] MEDS: ENOXAPARIN 40 MG/0.4 ML PFS SQ SCH (16:40)
[2016-11-04] MEDS: ATORVASTATIN 20 MG TAB PO SCH (21:01)
[2016-11-04] MEDS: CHLORHEXIDINE (HIBICLENS) 4 OZ BOTTLE TOP SCH (21:13)
[2016-11-05] MEDS: ONDANSETRON HCL 4 MG/2 ML VIAL IV PRN (04:40)
[2016-11-05] MEDS ORDERED: REGULAR INSULIN 100 UNITS/ML - 3 ML VIAL SQ ONE (05:11)
[2016-11-05] MEDS: PANTOPRAZOLE 40 MG TAB PO SCH (05:22)
[2016-11-05 05:44] LABS: BLOOD UREA NITROGEN 2 MG/DL (7-17); CALCULATED OSMOLALITY 285 MOs/Kg (270-290); GLUCOSE 313 MG/DL (70-99); SODIUM LEVEL 144 mEq/L (137-146)
[2016-11-05 06:38] LABS: CHLORIDE 101 mEq/L (98-107)
[2016-11-05] MEDS ORDERED: DEXTROSE 25 GM/50 ML PFS IV PRN (06:48)
[2016-11-05] MEDS ORDERED: DKA ELECTROLYTE PROTOCOL SCH (07:00)
[2016-11-05] MEDS: NS/KCl 20 mEq 1,000 ML IV SCH ×3 (08:02→20:45)
[2016-11-05] MEDS: SERTRALINE HCL 100 MG TAB PO SCH (08:04)
[2016-11-05] MEDS: LEVOTHYROXINE 50 MCG (0.05 MG) TAB PO SCH (08:04)
[2016-11-05] MEDS: BuPROPion 150 MG XL TAB PO SCH (08:04)
[2016-11-05] MEDS: ASPIRIN (CHEWABLE) 81 MG TAB PO SCH (08:04)
[2016-11-05] MEDS: LISINOPRIL 10 MG TAB PO SCH (08:04)
[2016-11-05] MEDS: Insulin, Regular 100 UNITS in NS 99 ML IV SCH ×4 (08:10→16:45)
[2016-11-05] MEDS: PROMETHAZINE 25 MG/ML VIAL IV PRN (08:43)
[2016-11-05 08:57] LABS: BLOOD UREA NITROGEN 26 MG/DL (7-17); CALCIUM 8.5 MG/DL (8.4-10.2); CALCULATED OSMOLALITY 285 MOs/Kg (270-290); CHLORIDE 104 mEq/L (98-107); GLUCOSE 349 MG/DL (70-99); SODIUM LEVEL 138 mEq/L (137-146)
[2016-11-05 10:16] LABS: AUTOMATED LYMPH 16.1 % (17-44); AUTOMATED MONOCYTE 5.4 % (3-10); AUTOMATED NEUTROPHIL 78.5 % (45-76); MPV 9.8 fL (7.4-10.4)
[2016-11-05 12:17] LABS: BLOOD UREA NITROGEN 26 MG/DL (7-17); CALCIUM 8.7 MG/DL (8.4-10.2); CALCULATED OSMOLALITY 276 MOs/Kg (270-290); CHLORIDE 105 mEq/L (98-107); GLUCOSE 188 MG/DL (70-99); SODIUM LEVEL 138 mEq/L (137-146)
[2016-11-05] MEDS: CALCIUM CARBONATE + VITAMIN D 500 MG TAB PO SCH ×2 (13:03→17:34)
[2016-11-05] MEDS: VITS,MINERALS,IRON TAB PO SCH (13:04)
--- NOTE | 2016-11-05 14:13 | GENMEDPROG ---
Chief Complaint: Patient is going back into DKA this morning Notes Reviewed: Yes Events from last night noted and discussed with Clinical Staff Current Medication List: Reviewed DVT Prophylaxis: Yes - Physical Examination Vital Signs and I&O: Last Vital Signs Temp 98.1 F 11/05/16 10:00 Pulse 93 11/05/16 12:00 Resp 18 11/05/16 10:00 BP 109/54 L 11/05/16 10:00 Pulse Ox 95 11/05/16 10:00 Oxygen Pulse Oxygen Saturation 95 O2 Device Room Air Oxygen Flow Rate 2 Fraction of Inspired Oxygen ( FIO2) Intake & Output 11/02/16 11/03/16 11/04/16 11/05/16 23:59 23:59 23:59 23:59 Intake Total 2012 3924 508 Balance 2012 9720 508 Patient's weight 63.276 kg 63.276 kg 63.276 kg General: Alert, Oriented x3, No acute distress, Well appearing, Well nourished HEENT: Normal (Normocephalic, atraumatic;EOMI.Sclera white, Nares patent, without discharge or bleeding. No oropharyngeal lesions or erythema. Mucous membranes are dry.) Neck: Non-tender, Normal Trachea alignment, Normal inspection (No cervical lymphadenopathy. No supraclavicular lymphadenopathy.), No Masses palpable, Limited range of motion, Supple Lymphatics: Normal (no adenopathy) Respiratory: Normal - CTA (BBS clear to auscultation without adventitious sounds ) Cardiovascular: Regular rate and rhythm (No bradycardia or tachycardia), Normal S1, No Gallops,Rubs/Murmurs, Normal S2, Good Pedal Pulses (DP pulses 2+ bilaterally) GI: Normal bowel sounds (normal active sounds), Soft (non-distended), No hepatospenomegaly, No masses, Tenderness (Mild right mid abdominal region tenderness) Extremities/Musculoskeletal: Normal pulses (DP pulses 2+ bilaterally) Skin: Warm,Dry and Intact, No rashes, No significant lesion Neurological: Strength at 5/5 X4 ext (Motor 5/5 throughout.), Normal tone, Cranial nerves 3-12 NL ( 2-12 grossly intact.) Psych/Mental Status: Appropriate, Normal Affect Lab/DI/Studies Reviewed: 11/05/16 08:40 11/05/16 11:43 Laboratory Results - last 24 hr 11/04/16 11/04/16 11/04/16 14:47 15:50 16:07 WBC RBC Hgb Hct MCV MCH MCHC RDW Plt Count MPV Neut % (Auto) Lymph % (Auto) [place] % (Auto) Eos % (Auto) Baso % (Auto) Absolute Neuts (auto) Absolute Lymphs (auto) Sodium 137 Potassium 3.8 Chloride 104 Carbon Dioxide 26 Anion Gap 11 BUN 27 H Creatinine 0.80 Estimated GFR (MDRD) > 60 Glucose 202 H POC Capillary Glucose 296 H 196 H Calculated Osmolality 275 Calcium 8.5 Phosphorus Magnesium 11/04/16 11/04/16 11/04/16 17:13 20:29 20:35 WBC RBC Hgb Hct MCV MCH MCHC RDW Plt Count MPV Neut % (Auto) Lymph % (Auto) [place] % (Auto) Eos % (Auto) Baso % (Auto) Absolute Neuts (auto) Absolute Lymphs (auto) Sodium Potassium Chloride Carbon Dioxide Anion Gap BUN Creatinine Estimated GFR (MDRD) Glucose POC Capillary Glucose 133 H 375 H Calculated Osmolality Calcium Phosphorus Magnesium 2.00 11/05/16 11/05/16 11/05/16 04:52 05:25 06:22 WBC RBC Hgb Hct MCV MCH MCHC RDW Plt Count MPV Neut % (Auto) Lymph % (Auto) [place] % (Auto) Eos % (Auto) Baso % (Auto) Absolute Neuts (auto) Absolute Lymphs (auto) Sodium 144 D Potassium 5.2 H D Chloride 101 Carbon Dioxide 9 L* Anion Gap 39 H BUN 2 L Creatinine 0.80 Estimated GFR (MDRD) > 60 Glucose 313 H POC Capillary Glucose 527 H* 433 H* Calculated Osmolality 285 Calcium 9.0 Phosphorus Magnesium 11/05/16 11/05/16 11/05/16 07:45 08:09 08:40 WBC 10.5 RBC 4.08 L Hgb 12.7 Hct 37.7 MCV 92 MCH 31.2 MCHC 33.7 RDW 13.0 Plt Count 186 MPV 9.8 Neut % (Auto) 78.5 H Lymph % (Auto) 16.1 L [place] % (Auto) 5.4 Eos % (Auto) 0.0 Baso % (Auto) 0.0 Absolute Neuts (auto) 8.19 Absolute Lymphs (auto) 1.68 Sodium 138 Potassium 4.3 Chloride 104 Carbon Dioxide 13 L Anion Gap 25 H BUN 26 H Creatinine 0.90 Estimated GFR (MDRD) > 60 Glucose 349 H POC Capillary Glucose 318 H Calculated Osmolality 285 Calcium 8.5 Phosphorus 2.8 Magnesium 2.10 11/05/16 11/05/16 11/05/16 09:22 10:20 11:16 WBC RBC Hgb Hct MCV MCH MCHC RDW Plt Count MPV Neut % (Auto) Lymph % (Auto) [place] % (Auto) Eos % (Auto) Baso % (Auto) Absolute Neuts (auto) Absolute Lymphs (auto) Sodium Potassium Chloride Carbon Dioxide Anion Gap BUN Creatinine Estimated GFR (MDRD) Glucose POC Capillary Glucose 256 H 214 H 190 H Calculated Osmolality Calcium Phosphorus Magnesium 11/05/16 11/05/16 11/05/16 11:43 12:00 13:02 WBC RBC Hgb Hct MCV MCH MCHC RDW Plt Count MPV Neut % (Auto) Lymph % (Auto) [place] % (Auto) Eos % (Auto) Baso % (Auto) Absolute Neuts (auto) Absolute Lymphs (auto) Sodium 138 Potassium 4.3 Chloride 105 Carbon Dioxide 23 Anion Gap 14 BUN 26 H Creatinine 0.70 Estimated GFR (MDRD) > 60 Glucose 188 H POC Capillary Glucose 185 H 161 H Calculated Osmolality 276 Calcium 8.7 Phosphorus Magnesium 11/05/16 14:00 WBC RBC Hgb Hct MCV MCH MCHC RDW Plt Count MPV Neut % (Auto) Lymph % (Auto) [place] % (Auto) Eos % (Auto) Baso % (Auto) Absolute Neuts (auto) Absolute Lymphs (auto) Sodium Potassium Chloride Carbon Dioxide Anion Gap BUN Creatinine Estimated GFR (MDRD) Glucose POC Capillary Glucose 192 H Calculated Osmolality Calcium Phosphorus Magnesium - Assessment (1) DKA (diabetic ketoacidoses) Acute E13.10 - OTH DIABETES MELLITUS WITH KETOACIDOSIS WITHOUT COMA Qualifiers: Diabetes mellitus type: type 1 Diabetes mellitus complication detail: without coma Qualified Code(s): E10.10 - Type 1 diabetes mellitus with ketoacidosis without coma Comment/Plan: DKA improved yesterday but recurred today and concerned that occult infection is contributing to this instead of a defective pump. [employer] was consulted for the pump function and there was no apparent problem. IV insulin ordered to control glucoses and return to her non DKA state. Blood sputum urine cultures ordered and empiric antibiotics are to be started in the form of Rocephin and Levaquin with probiotic. Chest x-ray ordered. (2) Abdominal discomfort Acute R10.9 - UNSPECIFIED ABDOMINAL PAIN Comment/Plan: Mild abdominal discomfort mention today and described as a rumbling sensation in the mid abdominal region with recurrent DKA and no apparent etiology will get CT abdomen pelvis looking for occult abscess. Questionable tenderness on palpation the right mid abdominal region. (3) Chronic kidney disease stage 2 Chronic N18.2 - CHRONIC KIDNEY DISEASE, STAGE 2 (MILD) Comment/Plan: Creatinine dropped from 1.2-0.7. (4) Gastroesophageal reflux disease Active K21.9 - GASTRO-ESOPHAGEAL REFLUX DISEASE WITHOUT ESOPHAGITIS Comment/ Plan: PPI. (5) Dehydration Resolved E86.0 - DEHYDRATION Comment/Plan: IV fluids. Case Care Discussed with: Patient, Family, Nursing Staff, Resource Management Education/Counseling Given To: Patient, Family Member Education/Counseling Given Regarding: Diagnosis, Treatment Total Time: 41 min Critical Care: Yes Code: 291
[2016-11-05] MEDS ORDERED: Pharmacy Review for Metformin - IV Contrast Given SCH (15:00)
[2016-11-05 15:08] LABS: LEUKOCYTES/URINE NEG (NEGATIVE); NITRITE/URINE NEG (NEGATIVE); RBC/URINE 0-2 (0-5); URINE OCCULT BLOOD NEG (NEG/TRACE); WBC/URINE 0-2 (0-5)
--- NOTE | 2016-11-05 15:31 | DIRPT ---
CLINICAL DATA: Urinary tract infection. Sepsis. Recurrent diabetic ketoacidosis. EXAM: CHEST 2 VIEW COMPARISON: 11/03/2016 FINDINGS: Heart size is within normal limits. Decreased lung volumes noted. Mild bibasilar atelectasis is seen which is new. No evidence pulmonary consolidation or pleural effusion. Moderate size hiatal hernia also noted. IMPRESSION: Decreased lung volumes with mild bibasilar atelectasis. Moderate hiatal hernia. Electronically Signed By: Shorty Alas M.D. On: 11/05/2016 15:29
--- NOTE | 2016-11-05 15:59 | DIRPT ---
CLINICAL DATA: Recurrent diabetic ketoacidosis. Weakness and vomiting. EXAM: CT ABDOMEN AND PELVIS WITHOUT AND WITH CONTRAST TECHNIQUE: Multidetector CT imaging of the abdomen and pelvis was performed following the standard protocol before and following the bolus administration of intravenous contrast. CONTRAST: 100 cc of Isovue 270 COMPARISON: None FINDINGS: Lower chest: There are small bilateral pleural effusions right greater than left. No pericardial effusion. Large hiatal hernia noted. The lung bases appear clear. Hepatobiliary: No focal liver abnormality identified. The gallbladder is normal. There is no biliary dilatation. Pancreas: There is diffuse atrophy of the pancreatic parenchyma. Spleen: The spleen is negative. Adrenals/Urinary Tract: The adrenal glands are both within normal limits. Normal appearance of both kidneys. The urinary bladder appears within normal limits. Stomach/Bowel: Large hiatal hernia. The small bowel loops have a normal course and caliber. Normal appearance of the colon. Vascular/Lymphatic: Calcified atherosclerotic disease involves the abdominal aorta. No aneurysm. No enlarged retroperitoneal or mesenteric adenopathy. No enlarged pelvic or inguinal lymph nodes. Reproductive: Previous hysterectomy. No adnexal mass. Other: No free fluid or fluid collections identified within the abdomen or pelvis. The Musculoskeletal: No aggressive lytic or sclerotic bone lesions identified. Degenerative disc disease is noted within the lumbar spine. This is most advanced at the L5-S1 level. There is a fracture deformity involving the superior endplate of the T12 vertebra. There is mild retropulsion of a small fracture fragment off the posterior aspect of the superior endplate, image 70 of series 301. IMPRESSION: 1. No acute findings identified within the abdomen or pelvis. No abscess or other fluid collection identified to explain patient's. 2. Aortic atherosclerosis 3. Hiatal hernia 4. Superior endplate fracture involves the T12 vertebra. There is an associated small fracture arising from the posterior aspect of the superior endplate which appears mildly retropulsed. These results will be called to the ordering clinician or traffic representative by the Radiologist [employer], and communication documented in the PACS or [employer] Dashboard. Electronically Signed By: Zee Browne M.D. On: 11/05/2016 15:56
[2016-11-05 16:14] LABS: BLOOD UREA NITROGEN 26 MG/DL (7-17); CALCIUM 8.8 MG/DL (8.4-10.2); CALCULATED OSMOLALITY 274 MOs/Kg (270-290); CHLORIDE 104 mEq/L (98-107); GLUCOSE 183 MG/DL (70-99); SODIUM LEVEL 137 mEq/L (137-146)
[2016-11-05] MEDS: CEFTRIAXONE 1 GM in D5W 100 ML IV SCH (16:44)
[2016-11-05] MEDS: ENOXAPARIN 40 MG/0.4 ML PFS SQ SCH (17:34)
[2016-11-05] MEDS: PROBIOTIC BLEND TAB PO SCH (17:34)
[2016-11-05] MEDS: Levofloxacin 750 mg/150 ml D5W 750 MG/150 ML RTU IV SCH (17:34)
[2016-11-05] MEDS: CHLORHEXIDINE (HIBICLENS) 4 OZ BOTTLE TOP SCH (20:45)
[2016-11-05] MEDS: ATORVASTATIN 20 MG TAB PO SCH (20:53)
[2016-11-06] MEDS: NS/KCl 20 mEq 1,000 ML IV SCH (02:10)
[2016-11-06] MEDS: PANTOPRAZOLE 40 MG TAB PO SCH (05:42)
[2016-11-06 06:32] LABS: AUTOMATED BASOPHIL 0.2 % (0-2); AUTOMATED EOSINOPHIL 1.6 % (0-5); AUTOMATED MONOCYTE 5.4 % (3-10); AUTOMATED NEUTROPHIL 50.8 % (45-76); MPV 10.4 fL (7.4-10.4)
[2016-11-06 06:42] LABS: BLOOD UREA NITROGEN 20 MG/DL (7-17); CALCIUM 9.1 MG/DL (8.4-10.2); CALCULATED OSMOLALITY 276 MOs/Kg (270-290); CHLORIDE 104 mEq/L (98-107); GLUCOSE 169 MG/DL (70-99); SODIUM LEVEL 140 mEq/L (137-146)
--- NOTE | 2016-11-06 07:48 | GENMEDPROG ---
Chief Complaint: No nausea vomiting no cough no sore throat no chest pain Notes Reviewed: Yes Events from last night noted and discussed with Clinical Staff Current Medication List: Reviewed DVT Prophylaxis: Yes - Physical Examination Vital Signs and I&O: Last Vital Signs Temp 97.8 F 11/06/16 03:00 Pulse 93 11/06/16 04:00 Resp 18 11/06/16 03:00 BP 124/68 11/06/16 03:00 Pulse Ox 97 11/06/16 03:00 Oxygen Pulse Oxygen Saturation 97 O2 Device Room Air Oxygen Flow Rate 2 Fraction of Inspired Oxygen ( FIO2) Intake & Output 11/03/16 11/04/16 11/05/16 11/06/16 23:59 23:59 23:59 23:59 Intake Total 2012 7296 0151 305 Balance 2012 2699 1670 471 Patient's weight 63.276 kg 63.276 kg 63.276 kg 62.414 kg General: Alert, Oriented x3, No acute distress, Well appearing, Well nourished HEENT: Normal (Normocephalic, atraumatic;EOMI.Sclera white, Nares patent, without discharge or bleeding. No oropharyngeal lesions or erythema. Mucous membranes are dry.) Neck: Non-tender, Normal Trachea alignment, Normal inspection (No cervical lymphadenopathy. No supraclavicular lymphadenopathy.), No Masses palpable, Limited range of motion, Supple Lymphatics: Normal (no adenopathy) Respiratory: Normal - CTA (BBS clear to auscultation without adventitious sounds ) Cardiovascular: Regular rate and rhythm (No bradycardia or tachycardia), Normal S1, No Gallops,Rubs/Murmurs, Normal S2, Good Pedal Pulses (DP pulses 2+ bilaterally) GI: Normal bowel sounds (normal active sounds), Soft (non-distended), No hepatospenomegaly, No masses, Tenderness (Mild right mid abdominal region tenderness) Extremities/Musculoskeletal: Normal pulses (DP pulses 2+ bilaterally) Skin: Warm,Dry and Intact, No rashes, No significant lesion Neurological: Strength at 5/5 X4 ext (Motor 5/5 throughout.), Normal tone, Cranial nerves 3-12 NL ( 2-12 grossly intact.) Psych/Mental Status: Appropriate, Normal Affect Lab/DI/Studies Reviewed: 11/06/16 05:45 11/06/16 05:45 Laboratory Results - last 24 hr 11/05/16 11/05/16 11/05/16 07:45 07:45 07:45 WBC RBC Hgb Hct MCV MCH MCHC RDW Plt Count MPV Neut % (Auto) Lymph % (Auto) [place] % (Auto) Eos % (Auto) Baso % (Auto) Absolute Neuts (auto) Absolute Lymphs (auto) ESR 9 Sodium 138 Potassium 4.3 Chloride 104 Carbon Dioxide 13 L Anion Gap 25 H BUN 26 H Creatinine 0.90 Estimated GFR (MDRD) > 60 Glucose 349 H POC Capillary Glucose Calculated Osmolality 285 Calcium 8.5 Phosphorus 2.8 Magnesium 2.10 C-Reactive Prot, Quant 32.8 H Urine Color Urine Clarity Urine pH Ur Specific [place] Urine Protein Urine Glucose (UA) Urine Ketones Urine Occult Blood Urine Nitrite Urine Bilirubin Urine Urobilinogen Ur Leukocyte Esterase Urine RBC Urine WBC Ur Epithelial Cells Urine Bacteria Urine Mucus 11/05/16 11/05/16 11/05/16 08:09 08:40 09:22 WBC 10.5 RBC 4.08 L Hgb 12.7 Hct 37.7 MCV 92 MCH 31.2 MCHC 33.7 RDW 13.0 Plt Count 186 MPV 9.8 Neut % (Auto) 78.5 H Lymph % (Auto) 16.1 L [place] % (Auto) 5.4 Eos % (Auto) 0.0 Baso % (Auto) 0.0 Absolute Neuts (auto) 8.19 Absolute Lymphs (auto) 1.68 ESR Sodium Potassium Chloride Carbon Dioxide Anion Gap BUN Creatinine Estimated GFR (MDRD) Glucose POC Capillary Glucose 318 H 256 H Calculated Osmolality Calcium Phosphorus Magnesium C-Reactive Prot, Quant Urine Color Urine Clarity Urine pH Ur Specific [place] Urine Protein Urine Glucose (UA) Urine Ketones Urine Occult Blood Urine Nitrite Urine Bilirubin Urine Urobilinogen Ur Leukocyte Esterase Urine RBC Urine WBC Ur Epithelial Cells Urine Bacteria Urine Mucus 11/05/16 11/05/16 11/05/16 10:20 11:16 11:43 WBC RBC Hgb Hct MCV MCH MCHC RDW Plt Count MPV Neut % (Auto) Lymph % (Auto) [place] % (Auto) Eos % (Auto) Baso % (Auto) Absolute Neuts (auto) Absolute Lymphs (auto) ESR Sodium 138 Potassium 4.3 Chloride 105 Carbon Dioxide 23 Anion Gap 14 BUN 26 H Creatinine 0.70 Estimated GFR (MDRD) > 60 Glucose 188 H POC Capillary Glucose 214 H 190 H Calculated Osmolality 276 Calcium 8.7 Phosphorus Magnesium C-Reactive Prot, Quant Urine Color Urine Clarity Urine pH Ur Specific [place] Urine Protein Urine Glucose (UA) Urine Ketones Urine Occult Blood Urine Nitrite Urine Bilirubin Urine Urobilinogen Ur Leukocyte Esterase Urine RBC Urine WBC Ur Epithelial Cells Urine Bacteria Urine Mucus 11/05/16 11/05/16 11/05/16 12:00 13:02 14:00 WBC RBC Hgb Hct MCV MCH MCHC RDW Plt Count MPV Neut % (Auto) Lymph % (Auto) [place] % (Auto) Eos % (Auto) Baso % (Auto) Absolute Neuts (auto) Absolute Lymphs (auto) ESR Sodium Potassium Chloride Carbon Dioxide Anion Gap BUN Creatinine Estimated GFR (MDRD) Glucose POC Capillary Glucose 185 H 161 H 192 H Calculated Osmolality Calcium Phosphorus Magnesium C-Reactive Prot, Quant Urine Color Urine Clarity Urine pH Ur Specific [place] Urine Protein Urine Glucose (UA) Urine Ketones Urine Occult Blood Urine Nitrite Urine Bilirubin Urine Urobilinogen Ur Leukocyte Esterase Urine RBC Urine WBC Ur Epithelial Cells Urine Bacteria Urine Mucus 11/05/16 11/05/16 11/05/16 14:20 15:27 15:43 WBC RBC Hgb Hct MCV MCH MCHC RDW Plt Count MPV Neut % (Auto) Lymph % (Auto) [place] % (Auto) Eos % (Auto) Baso % (Auto) Absolute Neuts (auto) Absolute Lymphs (auto) ESR Sodium 137 Potassium 4.2 Chloride 104 Carbon Dioxide 24 Anion Gap 13 BUN 26 H Creatinine 0.70 Estimated GFR (MDRD) > 60 Glucose 183 H POC Capillary Glucose 177 H Calculated Osmolality 274 Calcium 8.8 Phosphorus Magnesium C-Reactive Prot, Quant Urine Color Yellow Urine Clarity Clear Urine pH 5.0 Ur Specific [place] 1.015 Urine Protein Neg Urine Glucose (UA) 3+ H Urine Ketones 3+ H Urine Occult Blood Neg Urine Nitrite Neg Urine Bilirubin Neg Urine Urobilinogen <2.0 Ur Leukocyte Esterase Neg Urine RBC 0-2 Urine WBC 0-2 Ur Epithelial Cells Occ Urine Bacteria Few Urine Mucus Occ 11/05/16 11/05/16 11/05/16 16:42 17:37 18:29 WBC RBC Hgb Hct MCV MCH MCHC RDW Plt Count MPV Neut % (Auto) Lymph % (Auto) [place] % (Auto) Eos % (Auto) Baso % (Auto) Absolute Neuts (auto) Absolute Lymphs (auto) ESR Sodium Potassium Chloride Carbon Dioxide Anion Gap BUN Creatinine Estimated GFR (MDRD) Glucose POC Capillary Glucose 273 H 222 H 207 H Calculated Osmolality Calcium Phosphorus Magnesium C-Reactive Prot, Quant Urine Color Urine Clarity Urine pH Ur Specific [place] Urine Protein Urine Glucose (UA) Urine Ketones Urine Occult Blood Urine Nitrite Urine Bilirubin Urine Urobilinogen Ur Leukocyte Esterase Urine RBC Urine WBC Ur Epithelial Cells Urine Bacteria Urine Mucus 11/05/16 11/06/16 11/06/16 20:33 05:43 05:45 WBC RBC Hgb Hct MCV MCH MCHC RDW Plt Count MPV Neut % (Auto) Lymph % (Auto) [place] % (Auto) Eos % (Auto) Baso % (Auto) Absolute Neuts (auto) Absolute Lymphs (auto) ESR Sodium Potassium Chloride Carbon Dioxide Anion Gap BUN Creatinine Estimated GFR (MDRD) Glucose POC Capillary Glucose 285 H 165 H Calculated Osmolality Calcium Phosphorus 2.8 Magnesium 1.90 C-Reactive Prot, Quant Urine Color Urine Clarity Urine pH Ur Specific [place] Urine Protein Urine Glucose (UA) Urine Ketones Urine Occult Blood Urine Nitrite Urine Bilirubin Urine Urobilinogen Ur Leukocyte Esterase Urine RBC Urine WBC Ur Epithelial Cells Urine Bacteria Urine Mucus 11/06/16 11/06/16 05:45 05:45 WBC 8.2 RBC 4.16 L Hgb 13.0 Hct 38.3 MCV 92 MCH 31.2 MCHC 33.9 RDW 12.8 Plt Count 168 MPV 10.4 Neut % (Auto) 50.8 Lymph % (Auto) 42.0 [place] % (Auto) 5.4 Eos % (Auto) 1.6 Baso % (Auto) 0.2 Absolute Neuts (auto) 4.10 Absolute Lymphs (auto) 3.44 ESR Sodium 140 Potassium 4.3 Chloride 104 Carbon Dioxide 30 Anion Gap 10 BUN 20 H Creatinine 0.80 Estimated GFR (MDRD) > 60 Glucose 169 H POC Capillary Glucose Calculated Osmolality 276 Calcium 9.1 Phosphorus Magnesium C-Reactive Prot, Quant Urine Color Urine Clarity Urine pH Ur Specific [place] Urine Protein Urine Glucose (UA) Urine Ketones Urine Occult Blood Urine Nitrite Urine Bilirubin Urine Urobilinogen Ur Leukocyte Esterase Urine RBC Urine WBC Ur Epithelial Cells Urine Bacteria Urine Mucus - Assessment (1) DKA (diabetic ketoacidoses) Acute E13.10 - OTH DIABETES MELLITUS WITH KETOACIDOSIS WITHOUT COMA Qualifiers: Diabetes mellitus type: type 1 Diabetes mellitus complication detail: without coma Qualified Code(s): E10.10 - Type 1 diabetes mellitus with ketoacidosis without coma Comment/Plan: DKA recurred yesterday and had to reinstitute IV insulin but has apparently improved today with the administration of concomitant antibiotics. My concern is that she had an infection that allowed her to go back into DKA. Presently she is getting Levaquin and Rocephin for suspected respiratory tract infection. Probiotic ordered. Chest x-ray did show bibasilar atelectasis. CT of the abdomen pelvis failed to show any evidence of abscess. Initial cultures negative repeat cultures pending. (2) Abdominal discomfort Acute R10.9 - UNSPECIFIED ABDOMINAL PAIN Comment/Plan: Mild abdominal discomfort mentioned previously has now subsided and no more vomiting. CT of the abdomen pelvis was unrevealing. (3) Chronic kidney disease stage 2 Chronic N18.2 - CHRONIC KIDNEY DISEASE, STAGE 2 (MILD) Comment/Plan: Creatinine dropped from 1.2-0.7. (4) Gastroesophageal reflux disease Active K21.9 - GASTRO-ESOPHAGEAL REFLUX DISEASE WITHOUT ESOPHAGITIS Comment/ Plan: PPI. (5) Dehydration Resolved E86.0 - DEHYDRATION Comment/Plan: IV fluids. Case Care Discussed with: Patient, Family, Nursing Staff, Resource Management Education/Counseling Given To: Patient Education/Counseling Given Regarding: Diagnosis Total Time: 36 minutes Critical Care: No Code: 80086 (12+)
[2016-11-06] MEDS: SERTRALINE HCL 100 MG TAB PO SCH (08:11)
[2016-11-06] MEDS: LEVOTHYROXINE 50 MCG (0.05 MG) TAB PO SCH (08:11)
[2016-11-06] MEDS: BuPROPion 150 MG XL TAB PO SCH (08:11)
[2016-11-06] MEDS: ASPIRIN (CHEWABLE) 81 MG TAB PO SCH (08:11)
[2016-11-06] MEDS: LISINOPRIL 10 MG TAB PO SCH (08:11)
[2016-11-06] MEDS ORDERED: GLUCOSE (ORAL GEL) 15 GM TUBE PO PRN (08:55)
[2016-11-06] MEDS ORDERED: GLUCAGON 1 MG VIAL SQ PRN (08:55)
[2016-11-06] MEDS ORDERED: DEXTROSE 25 GM/50 ML PFS IV PRN (08:55)
[2016-11-06] MEDS ORDERED: Medication Special Instructions SCH (09:00)
[2016-11-06 09:46] LABS: BLOOD UREA NITROGEN 18 MG/DL (7-17); CALCIUM 9.4 MG/DL (8.4-10.2); CALCULATED OSMOLALITY 274 MOs/Kg (270-290); CHLORIDE 104 mEq/L (98-107); GLUCOSE 172 MG/DL (70-99); SODIUM LEVEL 139 mEq/L (137-146)
[2016-11-06] MEDS ORDERED: INSULIN ASPART 100 UNIT/ML SQ SCH (10:00)
[2016-11-06] MEDS: VITS,MINERALS,IRON TAB PO SCH (11:50)
[2016-11-06] MEDS: PROBIOTIC BLEND TAB PO SCH ×2 (11:50→18:13)
[2016-11-06] MEDS: CALCIUM CARBONATE + VITAMIN D 500 MG TAB PO SCH ×2 (11:51→17:54)
[2016-11-06] MEDS ORDERED: REGULAR INSULIN 100 UNITS/ML - 3 ML VIAL IV ONE (12:00)
[2016-11-06] MEDS: REGULAR INSULIN 100 UNITS/ML - 3 ML VIAL IV SCH ×3 (12:54→14:51)
[2016-11-06 13:44] LABS: BLOOD UREA NITROGEN 19 MG/DL (7-17); CALCIUM 9.1 MG/DL (8.4-10.2); CALCULATED OSMOLALITY 278 MOs/Kg (270-290); CHLORIDE 104 mEq/L (98-107); GLUCOSE 280 MG/DL (70-99); SODIUM LEVEL 138 mEq/L (137-146)
[2016-11-06] MEDS: CEFTRIAXONE 1 GM in D5W 100 ML IV SCH (16:39)
[2016-11-06] MEDS: Levofloxacin 750 mg/150 ml D5W 750 MG/150 ML RTU IV SCH (17:53)
[2016-11-06] MEDS: ENOXAPARIN 40 MG/0.4 ML PFS SQ SCH (17:54)
[2016-11-06] MEDS: ONDANSETRON HCL 4 MG/2 ML VIAL IV PRN (19:35)
[2016-11-06 20:48] LABS: BLOOD UREA NITROGEN 22 MG/DL (7-17); CALCIUM 9.1 MG/DL (8.4-10.2); CALCULATED OSMOLALITY 287 MOs/Kg (270-290); CHLORIDE 98 mEq/L (98-107); SODIUM LEVEL 135 mEq/L (137-146)
[2016-11-06 21:13] LABS: GLUCOSE 537 MG/DL (70-99)
[2016-11-06] MEDS: ATORVASTATIN 20 MG TAB PO SCH (21:49)
[2016-11-07 01:03] LABS: BLOOD UREA NITROGEN 24 MG/DL (7-17); CALCIUM 9.3 MG/DL (8.4-10.2); CALCULATED OSMOLALITY 293 MOs/Kg (270-290); CHLORIDE 98 mEq/L (98-107); SODIUM LEVEL 135 mEq/L (137-146)
[2016-11-07 01:13] LABS: GLUCOSE 621 MG/DL (70-99)
[2016-11-07] MEDS ORDERED: REGULAR INSULIN 100 UNITS/ML - 3 ML VIAL IV ONE ×2 (01:20→07:17)
[2016-11-07] MEDS: NS 2,000 ML IV SCH ×2 (01:47→02:34)
[2016-11-07] MEDS: PROMETHAZINE 25 MG/ML VIAL IV PRN ×2 (01:55→08:36)
[2016-11-07 04:24] LABS: BLOOD UREA NITROGEN 23 MG/DL (7-17); CALCIUM 8.6 MG/DL (8.4-10.2); CALCULATED OSMOLALITY 290 MOs/Kg (270-290); CHLORIDE 104 mEq/L (98-107); SODIUM LEVEL 138 mEq/L (137-146)
[2016-11-07 04:34] LABS: GLUCOSE 456 MG/DL (70-99)
[2016-11-07] MEDS ORDERED: NS 1,000 ML IV SCH ×2 (04:49→23:30)
[2016-11-07] MEDS: ONDANSETRON HCL 4 MG/2 ML VIAL IV PRN (06:04)
[2016-11-07] MEDS: Insulin, Regular 100 UNITS in NS 99 ML IV SCH ×4 (08:00→18:04)
[2016-11-07] MEDS: PANTOPRAZOLE 40 MG TAB PO SCH (08:04)
[2016-11-07] MEDS: CHLORHEXIDINE (HIBICLENS) 4 OZ BOTTLE TOP SCH ×2 (08:04→21:05)
[2016-11-07] MEDS: ASPIRIN (CHEWABLE) 81 MG TAB PO SCH (10:01)
[2016-11-07] MEDS: SERTRALINE HCL 100 MG TAB PO SCH (10:01)
[2016-11-07] MEDS: BuPROPion 150 MG XL TAB PO SCH (10:01)
[2016-11-07] MEDS: LEVOTHYROXINE 50 MCG (0.05 MG) TAB PO SCH (10:01)
[2016-11-07] MEDS: LISINOPRIL 10 MG TAB PO SCH (10:01)
[2016-11-07 10:02] LABS: BLOOD UREA NITROGEN 23 MG/DL (7-17); CALCIUM 8.8 MG/DL (8.4-10.2); CALCULATED OSMOLALITY 288 MOs/Kg (270-290); CHLORIDE 104 mEq/L (98-107); SODIUM LEVEL 138 mEq/L (137-146)
[2016-11-07 10:13] LABS: GLUCOSE 425 MG/DL (70-99)
[2016-11-07] MEDS: CALCIUM CARBONATE + VITAMIN D 500 MG TAB PO SCH ×2 (11:59→18:03)
[2016-11-07] MEDS: VITS,MINERALS,IRON TAB PO SCH (11:59)
[2016-11-07] MEDS: PROBIOTIC BLEND TAB PO SCH ×2 (11:59→18:03)
[2016-11-07] MEDS ORDERED: D5W 1,000 ML IV SCH (12:07)
[2016-11-07 13:56] LABS: BLOOD UREA NITROGEN 22 MG/DL (7-17); CALCIUM 8.9 MG/DL (8.4-10.2); CALCULATED OSMOLALITY 274 MOs/Kg (270-290); CHLORIDE 105 mEq/L (98-107); GLUCOSE 195 MG/DL (70-99); SODIUM LEVEL 138 mEq/L (137-146)
[2016-11-07] MEDS: REGULAR INSULIN 100 UNITS/ML - 3 ML VIAL IV SCH ×2 (15:47→15:48)
[2016-11-07] MEDS: NS/KCl 20 mEq 1,000 ML IV SCH (15:48)
[2016-11-07] MEDS: CEFTRIAXONE 1 GM in D5W 100 ML IV SCH (15:55)
[2016-11-07 17:56] LABS: BLOOD UREA NITROGEN 22 MG/DL (7-17); CALCIUM 8.8 MG/DL (8.4-10.2); CALCULATED OSMOLALITY 270 MOs/Kg (270-290); CHLORIDE 104 mEq/L (98-107); GLUCOSE 148 MG/DL (70-99); SODIUM LEVEL 137 mEq/L (137-146)
[2016-11-07] MEDS: Levofloxacin 750 mg/150 ml D5W 750 MG/150 ML RTU IV SCH (18:04)
[2016-11-07] MEDS: ENOXAPARIN 40 MG/0.4 ML PFS SQ SCH (18:04)
[2016-11-07] MEDS: ATORVASTATIN 20 MG TAB PO SCH (21:08)
[2016-11-07 21:51] LABS: BLOOD UREA NITROGEN 21 MG/DL (7-17); CALCIUM 8.9 MG/DL (8.4-10.2); CALCULATED OSMOLALITY 267 MOs/Kg (270-290); CHLORIDE 104 mEq/L (98-107); GLUCOSE 131 MG/DL (70-99); SODIUM LEVEL 136 mEq/L (137-146)
[2016-11-07] MEDS ORDERED: DEXTROSE 25 GM/50 ML PFS IV PRN (22:31)
[2016-11-07] MEDS ORDERED: POTASSIUM CHLORIDE 20 MEQ TAB PO ONE (22:34)
[2016-11-07] MEDS ORDERED: DKA ELECTROLYTE PROTOCOL SCH (23:00)
[2016-11-07] MEDS ORDERED: REGULAR INSULIN 100 UNITS/ML - 3 ML VIAL SQ SCH (23:00)
[2016-11-07] MEDS ORDERED: Insulin, Regular 100 UNITS in NS 99 ML IV SCH ×2 (23:00)
[2016-11-07] MEDS ORDERED: D5-1/2NS/KCL 20 mEq 1,000 ML IV SCH (23:00)
[2016-11-07] MEDS ORDERED: NS/KCl 20 mEq 1,000 ML IV SCH (23:30)
--- NOTE | 2016-11-07 23:48 | GENMEDPROG ---
Chief Complaint: recurrent dka prompted return to icu Notes Reviewed: Yes Events from last night noted and discussed with Clinical Staff Current Medication List: Reviewed DVT Prophylaxis: Yes - Physical Examination Vital Signs and I&O: Last Vital Signs Temp 98.3 F 11/07/16 15:00 Pulse 98 11/07/16 23:00 Resp 20 11/07/16 22:00 BP 110/56 L 11/07/16 23:00 Pulse Ox 98 11/07/16 13:00 Oxygen Pulse Oxygen Saturation 98 O2 Device Room Air Oxygen Flow Rate 2 Fraction of Inspired Oxygen ( FIO2) Intake & Output 11/04/16 11/05/16 11/06/16 11/07/16 23:59 23:59 23:59 23:59 Intake Total 2887 2786 226 2296 Balance 2887 2786 226 2296 Patient's weight 63.276 kg 63.276 kg 62.414 kg 65.408 kg General: Alert, Oriented x3, No acute distress, Well appearing, Well nourished HEENT: Normal (Normocephalic, atraumatic;EOMI.Sclera white, Nares patent, without discharge or bleeding. No oropharyngeal lesions or erythema. Mucous membranes are dry.) Neck: Non-tender, Normal Trachea alignment, Normal inspection (No cervical lymphadenopathy. No supraclavicular lymphadenopathy.), No Masses palpable, Limited range of motion, Supple Lymphatics: Normal (no adenopathy) Respiratory: Normal - CTA (BBS clear to auscultation without adventitious sounds ) Cardiovascular: Regular rate and rhythm (No bradycardia or tachycardia), Normal S1, No Gallops,Rubs/Murmurs, Normal S2, Good Pedal Pulses (DP pulses 2+ bilaterally) GI: Normal bowel sounds (normal active sounds), Soft (non-distended), No hepatospenomegaly, No masses, Tenderness (Mild right mid abdominal region tenderness) Extremities/Musculoskeletal: Normal pulses (DP pulses 2+ bilaterally) Skin: Warm,Dry and Intact, No rashes, No significant lesion Neurological: Strength at 5/5 X4 ext (Motor 5/5 throughout.), Normal tone, Cranial nerves 3-12 NL ( 2-12 grossly intact.) Psych/Mental Status: Appropriate, Normal Affect - Assessment (1) DKA (diabetic ketoacidoses) Acute E13.10 - OTH DIABETES MELLITUS WITH KETOACIDOSIS WITHOUT COMA Qualifiers: Diabetes mellitus type: type 1 Diabetes mellitus complication detail: without coma Qualified Code(s): E10.10 - Type 1 diabetes mellitus with ketoacidosis without coma Comment/Plan: DKA recurred another time and had to reinstitute IV insulin. My concern is that she had an infection that allowed her to go back into DKA. Presently she is getting Levaquin and Rocephin for suspected respiratory tract infection. Probiotic ordered. Chest x-ray did show bibasilar atelectasis. CT of the abdomen pelvis failed to show any evidence of abscess. Initial cultures negative repeat cultures pending but so far negative. Will keep on prolonged insulin drip with D5W and hopefully can d/c insulin drip in 24 hrs. (2) Abdominal discomfort Acute R10.9 - UNSPECIFIED ABDOMINAL PAIN Comment/Plan: Mild abdominal discomfort mentioned previously has now subsided and no more vomiting. CT of the abdomen pelvis was unrevealing. (3) Chronic kidney disease stage 2 Chronic N18.2 - CHRONIC KIDNEY DISEASE, STAGE 2 (MILD) Comment/Plan: Creatinine dropped from 1.2-0.7. (4) Gastroesophageal reflux disease Active K21.9 - GASTRO-ESOPHAGEAL REFLUX DISEASE WITHOUT ESOPHAGITIS Comment/ Plan: PPI. (5) Dehydration Resolved E86.0 - DEHYDRATION Comment/Plan: IV fluids. Case Care Discussed with: Patient, Nursing Staff, Resource Management Education/Counseling Given To: Patient Education/Counseling Given Regarding: Diagnosis Total Time: 41 min Critical Care: Yes Code: 291
[2016-11-08 01:27] LABS: BLOOD UREA NITROGEN 19 MG/DL (7-17); CALCIUM 8.6 MG/DL (8.4-10.2); CALCULATED OSMOLALITY 268 MOs/Kg (270-290); CHLORIDE 105 mEq/L (98-107); GLUCOSE 165 MG/DL (70-99); SODIUM LEVEL 136 mEq/L (137-146)
[2016-11-08] MEDS ORDERED: POTASSIUM CHLORIDE 20 MEQ TAB PO ONE (01:50)
[2016-11-08] MEDS: Insulin, Regular 100 UNITS in NS 99 ML IV SCH ×2 (03:21)
[2016-11-08] MEDS: PANTOPRAZOLE 40 MG TAB PO SCH (05:21)
[2016-11-08 06:34] LABS: BLOOD UREA NITROGEN 16 MG/DL (7-17); CALCIUM 8.8 MG/DL (8.4-10.2); CALCULATED OSMOLALITY 270 MOs/Kg (270-290); CHLORIDE 106 mEq/L (98-107); GLUCOSE 118 MG/DL (70-99); SODIUM LEVEL 139 mEq/L (137-146)
--- NOTE | 2016-11-08 08:14 | GENMEDPROG ---
Subjective Note: Patient doing well with no new complaints. Her blood sugars have all been in the low 100s. At this point will stop the dextrose IV fluids as well as the insulin drip and restart her home insulin pump. Once that is done we can feed her and see how she does today. Notes Reviewed: Yes Events from last night noted and discussed with Clinical Staff Current Medication List: Reviewed Currently: Denies: Cough, Wheezing, SOB DVT Prophylaxis: Yes - Physical Examination Vital Signs and I&O: Last Vital Signs Temp 98.7 F 11/08/16 07:00 Pulse 84 11/08/16 07:00 Resp 18 11/08/16 07:00 BP 120/65 11/08/16 07:00 Pulse Ox 95 11/08/16 07:00 Oxygen Pulse Oxygen Saturation 95 O2 Device Room Air Oxygen Flow Rate 2 Fraction of Inspired Oxygen ( FIO2) Intake & Output 11/05/16 11/06/16 11/07/16 11/08/16 23:59 23:59 23:59 23:59 Intake Total 2786 226 2296 930 Balance 2786 226 2296 930 Patient's weight 63.276 kg 62.414 kg 65.408 kg 69.995 kg General: Alert, Oriented x3, No acute distress, Well appearing, Well nourished HEENT: Normal (Normocephalic, atraumatic;EOMI.Sclera white, Nares patent, without discharge or bleeding. No oropharyngeal lesions or erythema. Mucous membranes are dry.) Neck: Non-tender, Normal Trachea alignment, Normal inspection (No cervical lymphadenopathy. No supraclavicular lymphadenopathy.), No Masses palpable, Limited range of motion, Supple Lymphatics: Normal (no adenopathy) Respiratory: Normal - CTA (BBS clear to auscultation without adventitious sounds ) Cardiovascular: Regular rate and rhythm (No bradycardia or tachycardia), Normal S1, No Gallops,Rubs/Murmurs, Normal S2, Good Pedal Pulses (DP pulses 2+ bilaterally) GI: Normal bowel sounds (normal active sounds), Soft (non-distended), No hepatospenomegaly, No masses, Tenderness (Mild right mid abdominal region tenderness) Extremities/Musculoskeletal: Normal pulses (DP pulses 2+ bilaterally) Skin: Warm,Dry and Intact, No rashes, No significant lesion Neurological: Strength at 5/5 X4 ext (Motor 5/5 throughout.), Normal tone, Cranial nerves 3-12 NL ( 2-12 grossly intact.) Psych/Mental Status: Appropriate, Normal Affect Lab/DI/Studies Reviewed: Abnormal Lab Results 11/07/16 11/07/16 11/07/16 09:01 09:15 09:59 Sodium Carbon Dioxide 14 L Anion Gap 24 H BUN 23 H Glucose 425 H* POC Capillary Glucose 404 H* 322 H Calculated Osmolality 11/07/16 11/07/16 11/07/16 10:57 11:57 13:09 Sodium Carbon Dioxide Anion Gap BUN Glucose POC Capillary Glucose 277 H 221 H 185 H Calculated Osmolality 11/07/16 11/07/16 11/07/16 13:24 14:11 15:00 Sodium Carbon Dioxide Anion Gap BUN 22 H Glucose 195 H POC Capillary Glucose 237 H 200 H Calculated Osmolality 11/07/16 11/07/16 11/07/16 15:55 17:08 17:20 Sodium Carbon Dioxide Anion Gap BUN 22 H Glucose 148 H POC Capillary Glucose 185 H 151 H Calculated Osmolality 11/07/16 11/07/16 11/07/16 18:01 19:13 20:03 Sodium Carbon Dioxide Anion Gap BUN Glucose POC Capillary Glucose 121 H 105 H 121 H Calculated Osmolality 11/07/16 11/07/16 11/07/16 20:53 21:20 22:00 Sodium 136 L Carbon Dioxide Anion Gap BUN 21 H Glucose 131 H POC Capillary Glucose 140 H 127 H Calculated Osmolality 267 L 11/07/16 11/08/16 11/08/16 23:55 00:51 01:00 Sodium 136 L Carbon Dioxide Anion Gap BUN 19 H Glucose 165 H POC Capillary Glucose 117 H 165 H Calculated Osmolality 268 L 11/08/16 11/08/16 11/08/16 02:01 03:20 04:06 Sodium Carbon Dioxide Anion Gap BUN Glucose POC Capillary Glucose 147 H 137 H 110 H Calculated Osmolality 11/08/16 11/08/16 11/08/16 04:55 05:46 05:50 Sodium Carbon Dioxide Anion Gap BUN Glucose 118 H POC Capillary Glucose 109 H 117 H Calculated Osmolality 11/08/16 07:32 Sodium Carbon Dioxide Anion Gap BUN Glucose POC Capillary Glucose 110 H Calculated Osmolality - Assessment (1) DKA (diabetic ketoacidoses) Acute E13.10 - OTH DIABETES MELLITUS WITH KETOACIDOSIS WITHOUT COMA Qualifiers: Diabetes mellitus type: type 1 Diabetes mellitus complication detail: without coma Qualified Code(s): E10.10 - Type 1 diabetes mellitus with ketoacidosis without coma Comment/Plan: Patient doing well today. Will restart her insulin pump and then discontinue insulin drip. Will continue medium consistent carbohydrate diet and check fingersticks frequently. (2) Chronic kidney disease stage 2 Chronic N18.2 - CHRONIC KIDNEY DISEASE, STAGE 2 (MILD) Comment/Plan: Creatinine dropped from 1.2-0.7. Creatinine remains normal. (3) Gastroesophageal reflux disease Active K21.9 - GASTRO-ESOPHAGEAL REFLUX DISEASE WITHOUT ESOPHAGITIS Comment/ Plan: PPI. (4) Dehydration Resolved E86.0 - DEHYDRATION Comment/Plan: Resolved will discontinue IV fluids and allow liberal p.o. intake (5) Abdominal discomfort Resolved R10.9 - UNSPECIFIED ABDOMINAL PAIN Comment/Plan: Now resolved. - Plan Continue off insulin drip today monitor blood sugars closely. Hopefully transfer to floor late this afternoon. Disposition Plan: Home. Case Care Discussed with: Patient, Family, Nursing Staff Education/Counseling Given To: Patient, Family Member Education/Counseling Given Regarding: Diagnosis, Treatment, Prognosis, Follow Up , Disposition Plan Total Time: 45 minutes. Critical Care: Yes [place] Time (>50% in counseling/coordination): No
[2016-11-08] MEDS ORDERED: NOVOLOG INSULIN PUMP SQ SCH (08:15)
[2016-11-08] MEDS ORDERED: GLUCAGON 1 MG VIAL SQ PRN (08:39)
[2016-11-08] MEDS ORDERED: GLUCOSE (ORAL GEL) 15 GM TUBE PO PRN (08:39)
[2016-11-08] MEDS ORDERED: DEXTROSE 25 GM/50 ML PFS IV PRN (08:39)
[2016-11-08] MEDS: NS/KCl 20 mEq 1,000 ML IV SCH ×2 (09:58→19:52)
[2016-11-08] MEDS: ASPIRIN (CHEWABLE) 81 MG TAB PO SCH (09:58)
[2016-11-08] MEDS: SERTRALINE HCL 100 MG TAB PO SCH (09:59)
[2016-11-08] MEDS: LISINOPRIL 10 MG TAB PO SCH (09:59)
[2016-11-08] MEDS: BuPROPion 150 MG XL TAB PO SCH (09:59)
[2016-11-08] MEDS: LEVOTHYROXINE 50 MCG (0.05 MG) TAB PO SCH (09:59)
[2016-11-08] MEDS: CALCIUM CARBONATE + VITAMIN D 500 MG TAB PO SCH ×2 (12:09→17:24)
[2016-11-08] MEDS: VITS,MINERALS,IRON TAB PO SCH (12:09)
[2016-11-08] MEDS: PROBIOTIC BLEND TAB PO SCH ×2 (12:10→19:52)
[2016-11-08] MEDS: CEFTRIAXONE 1 GM in D5W 100 ML IV SCH (15:52)
[2016-11-08] MEDS: ENOXAPARIN 40 MG/0.4 ML PFS SQ SCH (17:23)
[2016-11-08] MEDS: ATORVASTATIN 20 MG TAB PO SCH (19:52)
[2016-11-08] MEDS: CHLORHEXIDINE (HIBICLENS) 4 OZ BOTTLE TOP SCH (19:52)
[2016-11-09] MEDS: NS/KCl 20 mEq 1,000 ML IV SCH ×4 (03:44→22:41)
[2016-11-09] MEDS: PANTOPRAZOLE 40 MG TAB PO SCH (05:19)
[2016-11-09 07:47] LABS: AUTOMATED BASOPHIL 0.2 % (0-2); AUTOMATED EOSINOPHIL 3.9 % (0-5); AUTOMATED NEUTROPHIL 41.9 % (45-76); MPV 10.3 fL (7.4-10.4)
[2016-11-09 08:02] LABS: BLOOD UREA NITROGEN 10 MG/DL (7-17); CALCIUM 8.9 MG/DL (8.4-10.2); CALCULATED OSMOLALITY 269 MOs/Kg (270-290); CHLORIDE 106 mEq/L (98-107); GLUCOSE 85 MG/DL (70-99); SODIUM LEVEL 141 mEq/L (137-146)
[2016-11-09] MEDS: SERTRALINE HCL 100 MG TAB PO SCH (09:07)
[2016-11-09] MEDS: ASPIRIN (CHEWABLE) 81 MG TAB PO SCH (09:07)
[2016-11-09] MEDS: LISINOPRIL 10 MG TAB PO SCH (09:07)
[2016-11-09] MEDS: LEVOTHYROXINE 50 MCG (0.05 MG) TAB PO SCH (09:07)
[2016-11-09] MEDS: BuPROPion 150 MG XL TAB PO SCH (09:07)
[2016-11-09] MEDS: VITS,MINERALS,IRON TAB PO SCH (12:30)
[2016-11-09] MEDS: CALCIUM CARBONATE + VITAMIN D 500 MG TAB PO SCH ×2 (12:30→18:29)
[2016-11-09] MEDS: PROBIOTIC BLEND TAB PO SCH ×2 (12:30→18:29)
--- NOTE | 2016-11-09 16:44 | PCM.DCS92 ---
- Final/Secondary Discharge Diagnosis (1) DKA (diabetic ketoacidoses) Acute E13.10 - OTH DIABETES MELLITUS WITH KETOACIDOSIS WITHOUT COMA type 1 without coma E10.10 - Type 1 diabetes mellitus with ketoacidosis without coma Comment: Patient doing well today. Will restart her insulin pump and then discontinue insulin drip. Will continue medium consistent carbohydrate diet and check fingersticks frequently. (2) Chronic kidney disease stage 2 Chronic N18.2 - CHRONIC KIDNEY DISEASE, STAGE 2 (MILD) Comment: Creatinine dropped from 1.2-0.7. Creatinine remains normal. (3) Gastroesophageal reflux disease Active K21.9 - GASTRO-ESOPHAGEAL REFLUX DISEASE WITHOUT ESOPHAGITIS Comment : PPI. (4) Dehydration Resolved E86.0 - DEHYDRATION Present on Admission: Yes Comment: Resolved will discontinue IV fluids and allow liberal p.o. intake (5) Abdominal discomfort Resolved R10.9 - UNSPECIFIED ABDOMINAL PAIN Comment: Now resolved. Discharge Condition: Good Forms: Patient Discharge Instructions, ED Discharge Instructions Physician Follow up/Referrals: None,No Provider [Family Provider] - One Week Home Medications / New Prescriptions: No Action Omeprazole [Prilosec] 40 mg PO DAILY Sertraline HCl 100 mg PO DAILY Aspirin [Aspirin, Chewable] 81 mg PO DAILY Ergocalciferol (Vitamin D2) [Vitamin D2 (ergocalciferol)] 50,000 units PO Vazquez@ 0900 Lisinopril [Prinivil] 10 mg PO DAILY Calcium Carbonate/Vitamin D3 [Calcium + Vit D Caplet (600mg/400IU)] 1 tab PO BID BuPROPion (Daily formulation) [Wellbutrin Xl] 150 mg PO DAILY Atorvastatin Calcium [Lipitor] 20 mg PO QHS Levothyroxine [Synthroid, Levoxyl] 50 mcg PO DAILY Iron Fum & Ps Cmp/Vit C & B [Integra Capsule] 1 each PO DAILY Novolog Insulin Pump 0 units .ROUTE .CONTINUOUS O2 Device: Room Air - DC Summary Notes Hospital Course Note:: Discharge summary on patient named BETH CHOI admitted to [facility] on 11/03/16 by Jerry Valle MD. Date of discharge is []. - Physical Exam Vital Signs: Last Vital Signs Temp 98.6 F 11/09/16 16:37 Pulse 89 11/09/16 16:37 Resp 18 11/09/16 16:37 BP 136/68 11/09/16 16:37 Pulse Ox 97 11/09/16 16:37 Oxygen Pulse Oxygen Saturation 97 O2 Device Room Air Oxygen Flow Rate 2 Fraction of Inspired Oxygen ( FIO2) Constitutional: Alert (Awake) Oriented to: Time, Person, Place - HEENT Head: Normal ( normocephalic) Eye: Normal (PERRL, EOMI, Sclera white) Oropharynx: Normal (Pharynx:Moist without exudate,Gums-no swelling) Tympanic Membrane: Normal ENT EAC: Normal TMJ: Normal Nose: No Symptoms Reported (septum midline) - Respiratory/Cardiovascular Respiratory: Normal - CTA (BBS clear to auscultation without adventitious sounds ) - GI Auscultation: Normal (NABS) Palpation: Normal (Soft,No rebound or guarding, non distended) Tenderness: Non tender Jean's Sign: Negative - Musculoskeletal Back: Normal (Non-Tender) Extremities: Normal (Normal tone, Pulses 2+ No cyanosis or edema, FROM) - Integumentary Lymphatics: Normal (no adenopathy) - Neurologic Memory Impaired: Normal Cerebellar: Normal Mood Description: Normal Perception: Normal
--- NOTE | 2016-11-09 16:52 | GENMEDPROG ---
Currently: Denies: Cough, Wheezing, SOB DVT Prophylaxis: Yes - Physical Examination Vital Signs and I&O: Last Vital Signs Temp 98.6 F 11/09/16 16:37 Pulse 89 11/09/16 16:37 Resp 18 11/09/16 16:37 BP 136/68 11/09/16 16:37 Pulse Ox 97 11/09/16 16:37 Oxygen Pulse Oxygen Saturation 97 O2 Device Room Air Oxygen Flow Rate 2 Fraction of Inspired Oxygen ( FIO2) Intake & Output 11/06/16 11/07/16 11/08/16 11/09/16 23:59 23:59 23:59 23:59 Intake Total 226 229 3553 2131 Balance 226 2296 3553 2134 Patient's weight 62.414 kg 65.408 kg 69.995 kg 70.789 kg General: Alert, Oriented x3, No acute distress, Well appearing, Well nourished HEENT: Normal (Normocephalic, atraumatic;EOMI.Sclera white, Nares patent, without discharge or bleeding. No oropharyngeal lesions or erythema. Mucous membranes are dry.) Neck: Non-tender, Full range of motion, Normal Trachea alignment, Normal inspection (No cervical lymphadenopathy. No supraclavicular lymphadenopathy.), No Masses palpable, Supple Lymphatics: Normal (no adenopathy) Respiratory: Normal - CTA (BBS clear to auscultation without adventitious sounds ) Cardiovascular: Regular rate and rhythm (No bradycardia or tachycardia), Normal S1, No Gallops,Rubs/Murmurs, Normal S2, Good Pedal Pulses (DP pulses 2+ bilaterally) GI: Normal bowel sounds (normal active sounds), Soft (non-distended), Non tender , No hepatospenomegaly, No masses Extremities/Musculoskeletal: Normal pulses (DP pulses 2+ bilaterally) Skin: Warm,Dry and Intact, No rashes, No significant lesion Neurological: Strength at 5/5 X4 ext (Motor 5/5 throughout.), Normal tone, Cranial nerves 3-12 NL ( 2-12 grossly intact.) Psych/Mental Status: Appropriate, Normal Affect Lab/DI/Studies Reviewed: Laboratory Results - last 24 hr 11/08/16 11/08/16 11/08/16 16:33 20:08 23:59 WBC RBC Hgb Hct MCV MCH MCHC RDW Plt Count MPV Neut % (Auto) Lymph % (Auto) Vernon % (Auto) Eos % (Auto) Baso % (Auto) Absolute Neuts (auto) Absolute Lymphs (auto) Sodium Potassium Chloride Carbon Dioxide Anion Gap BUN Creatinine Estimated GFR (MDRD) Glucose POC Capillary Glucose 117 H 80 60 L Calculated Osmolality Calcium Magnesium 11/09/16 11/09/16 11/09/16 00:37 05:16 06:03 WBC RBC Hgb Hct MCV MCH MCHC RDW Plt Count MPV Neut % (Auto) Lymph % (Auto) Vernon % (Auto) Eos % (Auto) Baso % (Auto) Absolute Neuts (auto) Absolute Lymphs (auto) Sodium Potassium Chloride Carbon Dioxide Anion Gap BUN Creatinine Estimated GFR (MDRD) Glucose POC Capillary Glucose 76 53 L 118 H Calculated Osmolality Calcium Magnesium 11/09/16 11/09/16 11/09/16 07:34 07:34 07:34 WBC 5.0 RBC 3.96 L Hgb 12.6 Hct 36.5 MCV 92 MCH 31.7 MCHC 34.4 RDW 13.0 Plt Count 129 L MPV 10.3 Neut % (Auto) 41.9 L Lymph % (Auto) 49.0 H Vernon % (Auto) 5.0 Eos % (Auto) 3.9 Baso % (Auto) 0.2 Absolute Neuts (auto) 2.05 Absolute Lymphs (auto) 2.45 Sodium 141 Potassium 4.3 Chloride 106 Carbon Dioxide 31 Anion Gap 8 BUN 10 Creatinine 0.60 Estimated GFR (MDRD) > 60 Glucose 85 POC Capillary Glucose Calculated Osmolality 269 L Calcium 8.9 Magnesium 1.70 Cancelled 11/09/16 11/09/16 11/09/16 09:04 10:06 11:42 WBC RBC Hgb Hct MCV MCH MCHC RDW Plt Count MPV Neut % (Auto) Lymph % (Auto) Vernon % (Auto) Eos % (Auto) Baso % (Auto) Absolute Neuts (auto) Absolute Lymphs (auto) Sodium Potassium Chloride Carbon Dioxide Anion Gap BUN Creatinine Estimated GFR (MDRD) Glucose POC Capillary Glucose 57 L 93 39 L* Calculated Osmolality Calcium Magnesium 11/09/16 11/09/16 12:03 13:37 WBC RBC Hgb Hct MCV MCH MCHC RDW Plt Count MPV Neut % (Auto) Lymph % (Auto) Vernon % (Auto) Eos % (Auto) Baso % (Auto) Absolute Neuts (auto) Absolute Lymphs (auto) Sodium Potassium Chloride Carbon Dioxide Anion Gap BUN Creatinine Estimated GFR (MDRD) Glucose POC Capillary Glucose 84 212 H Calculated Osmolality Calcium Magnesium - Assessment (1) DKA (diabetic ketoacidoses) Acute E13.10 - OTH DIABETES MELLITUS WITH KETOACIDOSIS WITHOUT COMA Qualifiers: Diabetes mellitus type: type 1 Diabetes mellitus complication detail: without coma Qualified Code(s): E10.10 - Type 1 diabetes mellitus with ketoacidosis without coma Comment/Plan: Patient having episodes of hypoglycemia. It appears that she is frequently self dosing herself with her insulin pump. In discussions with her fuel cell designer her daughter found that she was not using her pump at all and that she was having significant troubles with that and her sugars were juanita high. I think there might be some element of dementia here and I am going to check a CT scan of the head to see if there is any atrophy. (2) Chronic kidney disease stage 2 Chronic N18.2 - CHRONIC KIDNEY DISEASE, STAGE 2 (MILD) Comment/Plan: Creatinine dropped from 1.2-0.7. Creatinine remains normal. (3) Gastroesophageal reflux disease Active K21.9 - GASTRO-ESOPHAGEAL REFLUX DISEASE WITHOUT ESOPHAGITIS Comment/ Plan: PPI. (4) Dehydration Resolved E86.0 - DEHYDRATION Comment/Plan: Resolved will discontinue IV fluids and allow liberal p.o. intake (5) Abdominal discomfort Resolved R10.9 - UNSPECIFIED ABDOMINAL PAIN Comment/Plan: Now resolved. - Plan Will continue to monitor her self dosing of insulin with the insulin pump. Suspect that that may be the Etiology of both her hyper and hypoglycemia. Disposition Plan: Home. Case Care Discussed with: Patient, Family, Nursing Staff Education/Counseling Given To: Patient, Family Member Education/Counseling Given Regarding: Diagnosis, Treatment, Prognosis, Follow Up , Disposition Plan Total Time: 45 minutes Critical Care: No Couseling Time (>50% in counseling/coordination): No
--- NOTE | 2016-11-09 18:06 | DIRPT ---
CLINICAL DATA: Confusion EXAM: CT HEAD WITHOUT CONTRAST TECHNIQUE: Contiguous axial images were obtained from the base of the skull through the vertex without intravenous contrast. COMPARISON: 04/19/2013 FINDINGS: No acute intracranial abnormality. Specifically, no hemorrhage, hydrocephalus, mass lesion, acute infarction, or significant intracranial injury. No acute calvarial abnormality. IMPRESSION: No acute intracranial abnormality. Electronically Signed By: Marcell Salter M.D. On: 11/09/2016 18:03
[2016-11-09] MEDS: ENOXAPARIN 40 MG/0.4 ML PFS SQ SCH (18:29)
[2016-11-09] MEDS: CEFTRIAXONE 1 GM in D5W 100 ML IV SCH (18:29)
[2016-11-09] MEDS: ATORVASTATIN 20 MG TAB PO SCH (20:28)
[2016-11-09] MEDS: CHLORHEXIDINE (HIBICLENS) 4 OZ BOTTLE TOP SCH (20:28)
[2016-11-10 05:04] VITALS: BMI 27.5
[2016-11-10] MEDS: PANTOPRAZOLE 40 MG TAB PO SCH (05:04)
[2016-11-10 07:32] VITALS: TEMP 98.2
[2016-11-10] MEDS: NS/KCl 20 mEq 1,000 ML IV SCH (07:56)
[2016-11-10] MEDS: LEVOTHYROXINE 50 MCG (0.05 MG) TAB PO SCH (07:58)
[2016-11-10] MEDS: ASPIRIN (CHEWABLE) 81 MG TAB PO SCH (07:59)
[2016-11-10] MEDS: BuPROPion 150 MG XL TAB PO SCH (07:59)
[2016-11-10] MEDS: LISINOPRIL 10 MG TAB PO SCH (07:59)
[2016-11-10] MEDS: SERTRALINE HCL 100 MG TAB PO SCH (07:59)
[2016-11-10 09:13] LABS: BLOOD UREA NITROGEN 10 MG/DL (7-17); CALCIUM 9.7 MG/DL (8.4-10.2); CALCULATED OSMOLALITY 270 MOs/Kg (270-290); CHLORIDE 102 mEq/L (98-107); GLUCOSE 68 MG/DL (70-99); SODIUM LEVEL 142 mEq/L (137-146)
[2016-11-10 10:28] VITALS: BP 117/57; PULSE 91
--- NOTE | 2016-11-10 11:31 | PCM.DCS92 ---
- Final/Secondary Discharge Diagnosis (1) DKA (diabetic ketoacidoses) Resolved E13.10 - OTH DIABETES MELLITUS WITH KETOACIDOSIS WITHOUT COMA Present on Admission: Yes type 1 without coma E10.10 - Type 1 diabetes mellitus with ketoacidosis without coma Comment: Patient having episodes of hypoglycemia. It appears that she is frequently self dosing herself with her insulin pump. In discussions with her motion pictures cartoonist her daughter found that she was not using her pump at all and that she was having significant troubles with that and her sugars were juanita high. I think there might be some element of dementia here and I am going to check a CT scan of the head to see if there is any atrophy. (2) Chronic kidney disease stage 2 Chronic N18.2 - CHRONIC KIDNEY DISEASE, STAGE 2 (MILD) Present on Admission: Yes Comment: Creatinine dropped from 1.2-0.7. Creatinine remains normal. (3) Gastroesophageal reflux disease Chronic K21.9 - GASTRO-ESOPHAGEAL REFLUX DISEASE WITHOUT ESOPHAGITIS Present on Admission: Yes Comment: PPI. (4) Abdominal discomfort Resolved R10.9 - UNSPECIFIED ABDOMINAL PAIN Present on Admission: Yes Comment: Now resolved. Discharge Disposition: Home Discharge Condition: Good Cognitive Discharge Status: Unimpaired Fuctional Discharge Status: Independent Forms: Patient Discharge Instructions, ED Discharge Instructions Physician Follow up/Referrals: Eduardo Gomez Jr, MD [NonStaff] - Two Weeks (Follow up for admission for DKA) Home Medications / New Prescriptions: New Probiotic Blend [Joleen Q] 1 tab PO BIDLS #60 tablet Continue Omeprazole [Prilosec] 40 mg PO DAILY Sertraline HCl 100 mg PO DAILY Aspirin [Aspirin, Chewable] 81 mg PO DAILY Ergocalciferol (Vitamin D2) [Vitamin D2 (ergocalciferol)] 50,000 units PO Vazquez@ 0900 Lisinopril [Prinivil] 10 mg PO DAILY Calcium Carbonate/Vitamin D3 [Calcium + Vit D Caplet (600mg/400IU)] 1 tab PO BID BuPROPion (Daily formulation) [Wellbutrin Xl] 150 mg PO DAILY Atorvastatin Calcium [Lipitor] 20 mg PO QHS Iron Fum & Ps Cmp/Vit C & B [Integra Capsule] 1 each PO DAILY Novolog Insulin Pump 0 units .ROUTE .CONTINUOUS Levothyroxine [Synthroid, Levoxyl] 50 mcg PO DAILY #30 Discharge Home Medication List Aspirin [Aspirin, Chewable] 81 mg PO DAILY 04/19/13 [History Confirmed 11/03/16] Ergocalciferol (Vitamin D2) [Vitamin D2 (ergocalciferol)] 50,000 units PO Vazquez@ 0900 04/19/13 [History Confirmed 11/03/16] Omeprazole [Prilosec] 40 mg PO DAILY 04/19/13 [History Confirmed 11/03/16] Sertraline HCl 100 mg PO DAILY 04/19/13 [History Confirmed 11/03/16] Atorvastatin Calcium [Lipitor] 20 mg PO QHS 11/11/15 [History Confirmed 11/03/16 ] BuPROPion (Daily formulation) [Wellbutrin Xl] 150 mg PO DAILY 11/11/15 [History Confirmed 11/03/16] Calcium Carbonate/Vitamin D3 [Calcium + Vit D Caplet (600mg/400IU)] 1 tab PO BID 11/11/15 [History Confirmed 11/03/16] Lisinopril [Prinivil] 10 mg PO DAILY 11/11/15 [History Confirmed 11/03/16] Iron Fum & Ps Cmp/Vit C & B [Integra Capsule] 1 each PO DAILY 11/03/16 [History Confirmed 11/03/16] Novolog Insulin Pump 0 units .ROUTE .CONTINUOUS 11/03/16 [History Confirmed ] Levothyroxine [Synthroid, Levoxyl] 50 mcg PO DAILY #30 11/10/16 [Rx Confirmed 11/03/16] Probiotic Blend [Joleen Q] 1 tab PO BIDLS #60 tablet 11/10/16 [Rx] New Discharge Medications (Rx) Levothyroxine [Synthroid, Levoxyl] 50 mcg PO DAILY #30 11/10/16 [Rx] Probiotic Blend [Joleen Q] 1 tab PO BIDLS #60 tablet 11/10/16 [Rx] O2 Device: Room Air Oxygen to be used after Discharge: Continuous Additional Instructions: Pt asked to log all her additional insulin doses. She had truoble with not remebering when she had given herself a bolus. I discussed with her the risks of hypoglycemia. I also performed a Folstein mini-mental status exam on the patient and she scored a 24 which is in the normal range. I have asked her that she work either with a friend her her daughter to have a little bit of assistance with her insulin pump. Diet at Discharge: Diabetic Activity: No Restrictions, As Tolerated Call Office For: Worsening Symptoms, Fever over 100.5, Pain Uncontrolled By Meds - DC Summary Notes Hospital Course Note:: Discharge summary on patient named BETH CHOI admitted to [facility] on 11/03/16 by Jerry Valle MD. Date of discharge is []. Very pleasant 71-year-old female admitted to our hospital with DKA. She quickly came out of DKA but unfortunately when we restarted her pump to having difficulty managing her glucoses and she would go back right into DKA. Two days prior to discharge were able to wean her insulin drip to off and restart her insulin pump. She did fairly well except she had several episodes of hypoglycemia. It was found out by nursing that the patient was taking extra doses of insulin with her pump. She seemed to be unable to remember when she had last taken an extra dose. So for example she would count her carbs pre meal in give herself a dose and then after eating give herself another dose. This caused her to become hypoglycemic. Once this was identified as a opportunity the patient was educated regarding using her insulin pump and recording her doses. She thinks there may be a weight of monitor on the pump itself whether not she has had a recent dose. Given issues of memory I also did a Folstein mini-mental status examination on the patient. She scored 24/30 which is in the lower range of normal. This was very reassuring to the patient and to her treatment team. We did however encourage the patient to get some assistance either from her daughter or friend regarding her insulin pump. We also encouraged her to record every 1 of her additional doses in a log book. At this point patient has reached maximum benefit of hospitalization. She is stable for discharge home. Total Time: 45 min Code: 18750 (>30min.) - Physical Exam Vital Signs: Last Vital Signs Temp 98.2 F 11/10/16 10:26 Pulse 91 11/10/16 10:26 Resp 18 11/10/16 10:26 BP 117/57 L 11/10/16 10:26 Pulse Ox 92 11/10/16 10:26 Oxygen Pulse Oxygen Saturation 92 O2 Device Room Air Oxygen Flow Rate 2 Fraction of Inspired Oxygen ( FIO2) Constitutional: Alert (Awake) Oriented to: Time, Person, Place - HEENT Head: Normal ( normocephalic) Eye: Normal (PERRL, EOMI, Sclera white) Oropharynx: Normal (Pharynx:Moist without exudate,Gums-no swelling) Tympanic Membrane: Normal ENT EAC: Normal TMJ: Normal Nose: No Symptoms Reported (septum midline) - Respiratory/Cardiovascular Respiratory: Normal - CTA (BBS clear to auscultation without adventitious sounds ) - GI Auscultation: Normal (NABS) Palpation: Normal (Soft,No rebound or guarding, non distended) Tenderness: Non tender Jean's Sign: Negative - Musculoskeletal Back: Normal (Non-Tender) Extremities: Normal (Normal tone, Pulses 2+ No cyanosis or edema, FROM) - Integumentary Skin: Normal (Warm dry no rashes) Lymphatics: Normal (no adenopathy) - Neurologic Memory Impaired: Normal Motor Function: Normal (Motor 5/5 throughout.Normal tone, Pulses 2+ No cyanosis or edema, FROM) Cranial Nerve: Normal (CN II-XII intact sensation, strength 5/5) Cerebellar: Normal Mood Description: Normal Perception: Normal - Other Exam Other Exam Findings: Laboratory Results - last 24 hr 11/09/16 11/09/16 11/09/16 05:16 11:42 12:03 Sodium Potassium Chloride Carbon Dioxide Anion Gap BUN Creatinine Estimated GFR (MDRD) Glucose POC Capillary Glucose 53 L 39 L* 84 Calculated Osmolality Calcium Magnesium 11/09/16 11/09/16 11/09/16 13:37 16:47 19:50 Sodium Potassium Chloride Carbon Dioxide Anion Gap BUN Creatinine Estimated GFR (MDRD) Glucose POC Capillary Glucose 212 H 255 H 277 H Calculated Osmolality Calcium Magnesium 11/09/16 11/10/16 11/10/16 22:39 05:02 06:58 Sodium Potassium Chloride Carbon Dioxide Anion Gap BUN Creatinine Estimated GFR (MDRD) Glucose POC Capillary Glucose 294 H 147 H 112 H Calculated Osmolality Calcium Magnesium 11/10/16 11/10/16 11/10/16 08:39 08:39 11:25 Sodium 142 Potassium 4.0 Chloride 102 Carbon Dioxide 34 H Anion Gap 10 BUN 10 Creatinine 0.60 Estimated GFR (MDRD) > 60 Glucose 68 L POC Capillary Glucose 175 H Calculated Osmolality 270 Calcium 9.7 Magnesium 1.90
== END 2016-11-10 12:15 | disposition home or self-care (01) | DRG 639 ==
LOC: ED 16:25 → ICU 19:03 → MASU 11-06 09:24 → ICU 11-07 07:40
PROVIDERS: ADMIT Internal Medicine; ATTEND Hospitalist
DX: E10.10 Type 1 diabetes mellitus with ketoacidosis without coma (principal); E10.649 Type 1 diabetes mellitus with hypoglycemia without coma; E10.22 Type 1 diabetes mellitus with diabetic chronic kidney disease; F03.90 Unspecified dementia, unspecified severity, without behavioral disturbance, psychotic disturbance, mood disturbance, and anxiety; N18.2 Chronic kidney disease, stage 2 (mild); R00.0 Tachycardia, unspecified; E86.0 Dehydration; Z79.4 Long term (current) use of insulin; E03.9 Hypothyroidism, unspecified; K21.9 Gastro-esophageal reflux disease without esophagitis; R10.9 Unspecified abdominal pain; Z86.2 Personal history of diseases of the blood and blood-forming organs and certain disorders involving the immune mechanism; Z79.899 Other long term (current) drug therapy; Z79.82 Long term (current) use of aspirin
CPT/HCPCS: 36415; 36600; 70450; 71010; 71020; 74178; 80048; 80053; 81001; 82803; 82962; 83036; 83735; 84100; 85025; 85027; 85651; 86140; 87040; 87070; 87086; 87205; 87641; 93005; 96361; 96365; 96366; 96372; 96375; 99284; A9698; J0696; J1650; J1815; J1956; J2405; J2550; J3475; J3480; J3490; J7030; J7040; J7060; J7070